=== PATIENT | female | born 1955 | race Caucasian/White ===

== ENCOUNTER → 2020-02-04 09:32 | Outpatient (BNVA) | payer MEDICARE, SELFPAY | PROVIDERS: PCP Internal Medicine Sports Medicine; Visit Provider Student in an Organized Health Care Education/Training Program | DX: M05.9 Rheumatoid arthritis with rheumatoid factor, unspecified (principal); R21 Rash and other nonspecific skin eruption; M81.0 Age-related osteoporosis without current pathological fracture; Z79.899 Other long term (current) drug therapy | CPT/HCPCS: 99213 ==

== ENCOUNTER → 2020-03-16 11:21 | Outpatient (BNVA) | payer MEDICARE, SELFPAY | PROVIDERS: PCP Internal Medicine Sports Medicine; Referring Provider Internal Medicine Sports Medicine; Visit Provider Student in an Organized Health Care Education/Training Program | DX: M05.9 Rheumatoid arthritis with rheumatoid factor, unspecified (principal); R21 Rash and other nonspecific skin eruption; M81.0 Age-related osteoporosis without current pathological fracture; Z79.52 Long term (current) use of systemic steroids; Z79.899 Other long term (current) drug therapy | CPT/HCPCS: 99212 ==

== ENCOUNTER → 2020-05-24 10:52 | Outpatient (BNVA) | payer MEDICARE, SELFPAY | PROVIDERS: PCP Internal Medicine Sports Medicine; Referring Provider Internal Medicine Sports Medicine; Visit Provider Student in an Organized Health Care Education/Training Program | DX: M05.9 Rheumatoid arthritis with rheumatoid factor, unspecified (principal); R21 Rash and other nonspecific skin eruption; M81.0 Age-related osteoporosis without current pathological fracture | CPT/HCPCS: 99212 ==

== ENCOUNTER → 2020-08-16 09:32 | Outpatient (BNVA) | payer MEDICARE, SELFPAY | PROVIDERS: PCP Internal Medicine Sports Medicine; Visit Provider Student in an Organized Health Care Education/Training Program | DX: M05.9 Rheumatoid arthritis with rheumatoid factor, unspecified (principal); M81.0 Age-related osteoporosis without current pathological fracture | CPT/HCPCS: 99212 ==

== ENCOUNTER → 2020-12-20 11:10 | Outpatient (BNVA) | payer MEDICARE, SELFPAY | PROVIDERS: Visit Provider Student in an Organized Health Care Education/Training Program | DX: M05.9 Rheumatoid arthritis with rheumatoid factor, unspecified (principal); M81.0 Age-related osteoporosis without current pathological fracture | CPT/HCPCS: 99212 ==

== ENCOUNTER → 2021-04-24 09:43 | Outpatient (BNVA) | payer MEDICARE, SELFPAY | PROVIDERS: PCP Internal Medicine Sports Medicine; Visit Provider Nurse Practitioner Family | DX: M81.0 Age-related osteoporosis without current pathological fracture (principal); M05.9 Rheumatoid arthritis with rheumatoid factor, unspecified | CPT/HCPCS: 99212 ==

== ENCOUNTER → 2021-08-16 10:42 | Outpatient (BNVA) | payer MEDICARE, SELFPAY | PROVIDERS: PCP Internal Medicine Sports Medicine; Visit Provider Nurse Practitioner Family | DX: M05.9 Rheumatoid arthritis with rheumatoid factor, unspecified (principal); M81.0 Age-related osteoporosis without current pathological fracture; Z79.899 Other long term (current) drug therapy | CPT/HCPCS: 99212 ==

== ENCOUNTER → 2021-11-22 10:01 | Outpatient (BNVA) | payer MEDICARE, SELFPAY | PROVIDERS: PCP Internal Medicine Sports Medicine; Visit Provider Nurse Practitioner Family | DX: M05.9 Rheumatoid arthritis with rheumatoid factor, unspecified (principal); M81.0 Age-related osteoporosis without current pathological fracture; Z79.899 Other long term (current) drug therapy | CPT/HCPCS: 99212 ==

== ENCOUNTER → 2022-03-20 08:30 | Outpatient (BNVA) | payer MEDICARE, SELFPAY | PROVIDERS: PCP Internal Medicine; Visit Provider Nurse Practitioner Family | DX: M05.9 Rheumatoid arthritis with rheumatoid factor, unspecified (principal); M81.0 Age-related osteoporosis without current pathological fracture; M79.672 Pain in left foot | CPT/HCPCS: 99212 ==

== ENCOUNTER → 2022-06-29 11:41 | Outpatient (BNVA) | payer MEDICARE, SELFPAY | PROVIDERS: PCP Internal Medicine; Visit Provider Nurse Practitioner Family | DX: M05.9 Rheumatoid arthritis with rheumatoid factor, unspecified (principal); M81.0 Age-related osteoporosis without current pathological fracture; M79.672 Pain in left foot; Z79.899 Other long term (current) drug therapy | CPT/HCPCS: 99212 ==

== ENCOUNTER → 2022-11-07 08:39 | Outpatient (BNVA) | payer MEDICARE, SELFPAY | PROVIDERS: PCP Internal Medicine; Visit Provider Internal Medicine Rheumatology | DX: M05.9 Rheumatoid arthritis with rheumatoid factor, unspecified (principal); Z79.899 Other long term (current) drug therapy | CPT/HCPCS: 99212 ==

== ENCOUNTER 2023-03-18 12:51 | Outpatient (AMB) | payer MEDICARE, SELFPAY ==
--- NOTE | 2023-03-18 12:59 | A.OFFVIS_ITS ---
Intake Vital Signs 03/18/23 13:00 Height 5 ft 4 in Weight 167 lb 8.821 oz BMI 28.8 BP 122/70 Blood Pressure Location Lt brachial Position Sitting Pulse 92 Pulse Source Pulse Oximeter Temp 97.2 F Temp Source Skin Pulse Oximetry (%) 94 Oxygen Delivery Method Room Air Intake Visit Reasons: RA Intake Note: Patient presents today to follow up on RA. DEXA at [facility] this year? 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 In general she says the joints are stable. 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 She also lauders the linen. She notes at the end of the day she is achy all over. She remains on leflunomide 20 mg daily. There have been no side effects with this. She has questions about her bone density studies. She had been on alendronate for about 5 years, it was stopped in May of this year. She had a bone density test last done in 2020. This was slightly worse than the previous 0ne from 2019. That test however was considerably better than the previous test from 2017. In any case she is no longer on the alendronate. She wonders if there should be other treatment for her osteoporosis. She has not had any fractures. She has a physically active job and also golfs in the springtime and summer so is rather active. 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 Card Details: Negative chest pain, edema and syncope Resp Details: Negative for SOB, cough and wheezing GI Details: Negative indigestion/heartburn, nausea, abdominal pain, bowel changes, diarrhea, constipation and bloody stool. Endo Details: Negative for polyuria and polydypsia Jason/Lymph Details: Negative for excessive bruising or bleeding. Physical Exam Vital Signs: Last Vital Signs Temp 97.2 F 03/18/23 13:00 Pulse 92 03/18/23 13:00 BP 122/70 03/18/23 13:00 Pulse Ox 94 03/18/23 13:00 Oxygen Delivery Method Room Air 03/18/23 13:00 BMI result Body Mass Index 28.8 APPEARANCE: Patient in no acute distress EYES no redness, pupils equal and reactive to light, eyelids normal EXTREMITIES: No edema, no calf tenderness, normal peripheral pulses. SKIN: No inflammatory or neoplastic lesions. Some calluses under the 1st MTP bilaterally in the left 5th MTP. These are not tender. JOINT EXAM:?? Cervical Spine:? Full range of motion without pain; no tenderness. Thoracic Spine:? No scoliosis.? No tenderness on palpation. Lumbar Spine: Alignment normal.? Full range of motion without pain, no tenderness. Hands: Right: Normal pain-free range of motion with some slight thickening w ithout tenderness at the 2nd and 3rd MCPs. There is some slight tenderness with some thickening at the 3rd PIP. There is some flexion deformity slight bony enlargement without tenderness at the 3rd through 5th PIP joints. The D IP joints also has some slight bony thickening without tenderness. There is no thenar atrophy or sensory loss. Left: Slight thickening without tenderness at the PIP and herDIP joints. Other joints have no soft tissue swelling or tenderness. No thenar atrophy or sensory loss. Wrists: Normal pain-free range of motion without tenderness, swelling, increased warmth or erythema. Elbows: Normal pain-free range of motion without tenderness, swelling, increased warmth or erythema. Shoulders:? Full range of motion without pain. No tenderness, weakness, swelling, increased warmth or erythema. Hips:? Full range of motion without pain. Hip bursa:? No tenderness. Knees:? Normal pain-free range of motion with mild patellofemoral crepitus. There is no effusion, tenderness, swelling, increased warmth or erythema.? Ankles:? Normal pain-free range of motion without tenderness, swelling, increased warmth or erythema. Feet:? LEFT: There is firm callus development underneath the 1st and 5th MTPs. These areas are not tender. There is some slight bony enlargement with no tenderness at the 1st MTP. The remainder of the joints have no soft tissue swelling, redness, warmth in the joints. Right: There is callus underneath the 1st MTP but it is less prominent than on the left side. There is slight 1st MTP bony enlargement without tenderness. Elsewhere she has no tenderness, erythema, swelling, increased warmth, ecchymosis or drainage.? The? Callus noted on the medial aspect of the left great toe ? ? ? Tender points:.? No tenderness to digital palpation at the occiput, trapezius, second rib, lateral epicondyle, knees, greater trochanter and gluteal area bilaterally. ? Results Reviewed Results Reviewed: Labs from [facility]: February 20, 2023: AST 14 ALT 19 creatinine 0.8 CRP less than 0.3 hemoglobin 12, hematocrit 36.7, white count 5.4, ESR less than 2 Assessment & Plan Assessment & Plan (1) Osteoarthritis of fingers of both hands: Code(s): M19.041 - Primary osteoarthritis, right hand; M19.042 - Primary osteoarthritis, left hand (2) ocean transportation intermediary use of drug: Code(s): Z79.899 - Other ocean transportation intermediary (current) drug therapy (3) Osteoporosis: Comment: T scores 04/2019 LS -3.2, fem neck -1.6, hip -1.6 -3.6 04/2021 LS -3.6, fem neck - 1.7, fem -1.6 alendronate 05/2017-05/2022. Code(s): M81.0 - Age-related osteoporosis without current pathological fracture Qualifiers: Osteoporosis type: unspecified Presence of current pathological fracture: without current pathological fracture Qualified Code(s): M81.0 - Age- related osteoporosis without current pathological fracture (4) Seropositive rheumatoid arthritis: Comment: onset 2006 Prednisone: reported- dates unknown Methotrexate: March 2016- January 2017-developed nodules Leflunomide: February 2018- present Xeljanz: September 2019 denied by insurance Humira: November 2019-stopped due to diffuse rash after starting MRI hand (11/21): high grade tear of carpi ulnaris, severe tenosynovitis. Erosions and carpal bones. Code(s): M05.9 - Rheumatoid arthritis with rheumatoid factor, unspecified Plan It looks like the synovitis from the rheumatoid arthritis is well controlled with current treatment. She is not having any side effects and the blood work looks normal so she can continue with the leflunomide as above. There are some underlying changes of osteoarthritis notable in hands. These are not particularly symptomatic currently. We reviewed her bone density studies which basically did show osteoporosis back in 2020 but at least T Scores have stabilized from previous baseline levels of osteoporosis. I told her it would be reasonable to repeat her bone density next year to see what she is doing with the bone density after being off the alendronate for about a year. We will schedule back a return visit in about 4 months with lab work before that visit. Orders: Orders Aspartate Amino Transferase Today M05.9 - Rheumatoid arthritis with rheumatoid factor, unspecified, Z79.899 - Other penitentiary (current) drug therapy Complete Blood Count Auto Diff Today M05.9 - Rheumatoid arthritis with rheumatoid factor, unspecified, Z79.899 - Other ocean transportation intermediary (current) drug therapy Creatinine Today M05.9 - Rheumatoid arthritis with rheumatoid factor, unspecified, Z79.899 - Other ocean transportation intermediary (current) drug therapy Erythrocyte Sedimentation Rate Today M05.9 - Rheumatoid arthritis with rheumatoid factor, unspecified C Reactive Protein Today M05.9 - Rheumatoid arthritis with rheumatoid factor, unspecified Alanine Aminotransferase Today M05.9 - Rheumatoid arthritis with rheumatoid factor, unspecified, Z79.899 - Other penitentiary (current) drug therapy Coding Level of Care Code Est Pt Level 3 (62611) Diagnoses Osteoarthritis of fingers of both hands M19.041; M19.042 alf use of drug Z79.899 Osteoporosis without current pathological fracture, unspecified osteoporosis type M81.0 Osteoporosis type: unspecified Presence of current pathological fracture: without current pathological fracture Seropositive rheumatoid arthritis M05.9
[2023-03-18 13:00] VITALS: BP 122/70; PULSE 92; TEMP 36.2; O2SAT 94; BMI 28.8
== END 2023-03-18 13:37 | disposition home or self-care (01) ==
PROVIDERS: PCP Physician Assistant Medical; Visit Provider Internal Medicine Rheumatology
DX: M19.041 Primary osteoarthritis, right hand (principal); M19.042 Primary osteoarthritis, left hand; Z79.899 Other long term (current) drug therapy; M81.0 Age-related osteoporosis without current pathological fracture; M05.79 Rheumatoid arthritis with rheumatoid factor of multiple sites without organ or systems involvement
CPT/HCPCS: 99214

== ENCOUNTER → 2023-03-18 12:51 | Outpatient (BNVA) | payer MEDICARE, SELFPAY | PROVIDERS: PCP Internal Medicine; Visit Provider Internal Medicine Rheumatology | DX: M05.9 Rheumatoid arthritis with rheumatoid factor, unspecified (principal); M19.041 Primary osteoarthritis, right hand; M19.042 Primary osteoarthritis, left hand; Z79.899 Other long term (current) drug therapy | CPT/HCPCS: 99212 ==

== ENCOUNTER 2023-07-23 14:09 | Outpatient (AMB) | payer MEDICARE, SELFPAY ==
--- NOTE | 2023-07-23 14:18 | MHC.OFFVIS ---
Intake Vital Signs 07/23/23 14:19 Height 5 ft 4 in Weight 160 lb 4.417 oz BMI 27.5 BP 120/68 Blood Pressure Location Rt brachial Position Sitting Respiration 16 Pulse 88 Pulse Source Pulse Oximeter Temp 98.3 F Pulse Oximetry (%) 95 Intake Visit Reasons: ra/op with waist cutter Data Administrator Required: No Allergies adalimumab [Humira] Allergy (Severe, Verified 07/23/23 14:23) rash Medication List - Last Reconciled 07/23/23 by Jeannie Maynard RN leflunomide 20 mg (2 x 10 mg) PO DAILY multivitamin 1 tab PO DAILY valsartan 160 mg PO DAILY HPI HPI Comments History of Present Illness Details Ms. Moser 68-year-old female returns for follow-up of her rheumatoid arthritis. She continues on leflunomide 20 mg and denies any side effects. She says she is functioning well and has not had any flares or joint pains that are concerning since her last visit. She has been off alendronate for about a year and is due to have a repeat bone density. 03/18/2023 Dr. Hadley The patient returns for evaluation of her rheumatoid arthritis. In general she says the joints are stable. 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 She also lauders the linen. She notes at the end of the day she is achy all over. She remains on leflunomide 20 mg daily. There have been no side effects with this. She has questions about her bone density studies. She had been on alendronate for about 5 years, it was stopped in May of this year. She had a bone density test last done in 2020. This was slightly worse than the previous 0ne from 2019. That test however was considerably better than the previous test from 2017. In any case she is no longer on the alendronate. She wonders if there should be other treatment for her osteoporosis. She has not had any fractures. She has a physically active job and also golfs in the springtime and summer so is rather active. 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 SKIN: No inflammatory or neoplastic lesions. Some calluses under the 1st MTP bilaterally in the left 5th MTP. These are not tender. JOINT EXAM:?? Cervical Spine:? Full range of motion without pain; no tenderness. Thoracic Spine:? No scoliosis.? No tenderness on palpation. Lumbar Spine: Alignment normal.? Full range of motion without pain, no tenderness. Hands: Right: Normal pain-free range of motion with some slight thickening without tenderness at the 2nd and 3rd MCPs. There is some slight tenderness with some thickening at the 3rd PIP. There is some flexion deformity slight bony enlargement without tenderness at the 3rd through 5th PIP joints. The DIP joints also has some slight bony thickening without tenderness. There is no thenar atrophy or sensory loss. Left: Slight thickening without tenderness at the PIP and her DIP joints. Other joints have no soft tissue swelling or tenderness. No thenar atrophy or sensory loss. Boutonniere deformity bilateral thumb Wrists: Normal pain-free range of motion without tenderness, swelling, increased warmth or erythema. Elbows: Normal pain-free range of motion without tenderness, swelling, increased warmth or erythema. Shoulders:? Full range of motion without pain. No tenderness, weakness, swelling, increased warmth or erythema. Hips:? Full range of motion without pain. Hip bursa:? No tenderness. Knees:? Normal pain-free range of motion with mild patellofemoral crepitus. There is no effusion, tenderness, swelling, increased warmth or erythema.? Ankles:? Normal pain-free range of motion without tenderness, swelling, increased warmth or erythema. Feet:? LEFT: There is firm callus development underneath the 1st and 5th MTPs. These areas are not tender. There is some slight bony enlargement with no tenderness at the 1st MTP. The remainder of the joints have no soft tissue swelling, redness, warmth in the joints. Right: There is callus underneath the 1st MTP but it is less prominent than on the left side. There is slight 1st MTP bony enlargement without tenderness. Elsewhere she has no tenderness, erythema, swelling, increased warmth, ecchymosis or drainage.? The? Callus noted on the medial aspect of the left great toe ? ? ? Tender points:.? No tenderness to digital palpation at the occiput, trapezius, second rib, lateral epicondyle, knees, greater trochanter and gluteal area bilaterally. ? Assessment & Plan Assessment & Plan (1) Osteoarthritis of fingers of both hands: Code(s): M19.041 - Primary osteoarthritis, right hand; M19.042 - Primary osteoarthritis, left hand (2) salvage determiner use of drug: Code(s): Z79.899 - Other longterm (current) drug therapy (3) Osteoporosis: Comment: T scores 04/2019 LS -3.2, fem neck -1.6, hip -1.6 -3.6 04/2021 LS -3.6, fem neck - 1.7, fem -1.6 alendronate 05/2017-05/2022. Code(s): M81.0 - Age-related osteoporosis without current pathological fracture Qualifiers: Osteoporosis type: unspecified Presence of current pathological fracture: without current pathological fracture Qualified Code(s): M81.0 - Age-related osteoporosis without current pathological fracture (4) Seropositive rheumatoid arthritis: Comment: onset 2006 Prednisone: reported- dates unknown Methotrexate: March 2016- January 2017-developed nodules Leflunomide: February 2018- present Xeljanz: September 2019 denied by insurance Humira: November 2019-stopped due to diffuse rash after starting MRI hand (11/21): high grade tear of carpi ulnaris, severe tenosynovitis. Erosions and carpal bones. Code(s): M05.9 - Rheumatoid arthritis with rheumatoid factor, unspecified Plan # Seropositive RA: It looks like the synovitis from the rheumatoid arthritis is well controlled with current treatment. 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 Her hand IP joints are not bothersome to her and are not symptomatic for stiffness pain or tenderness. Her ESR and CRP are within normal limits as of May 2023. I will obtain updated x-rays of her hands. Will continue leflunomide 20 mg daily. #Osteoporosis: We reviewed her bone density studies which basically did show osteoporosis back in 2020 -.. She has been off alendronate for about a year. We will obtain updated bone density and reassess what treatment to consider at time. #Long-term use: She is not having any side effects and the blood work looks normal so she can continue with the leflunomide 20 mg q.d.. We will also obtain labs before next visit. I spent 30 minutes reviewing history, evaluating patient and discussing osteoporosis treatment options, and documenting Follow-up 6 months months with lab work before that visit. Orders: Orders XR hand LT min 3V Today M05.9 - Rheumatoid arthritis with rheumatoid factor, unspecified XR hand RT min 3V Today M05.9 - Rheumatoid arthritis with rheumatoid factor, unspecified Erythrocyte Sedimentation Rate Today M05.9 - Rheumatoid arthritis with rheumatoid factor, unspecified, Z79.899 - Other salvage determiner (current) drug therapy XR DEXA axial skeleton Today M05.9 - Rheumatoid arthritis with rheumatoid factor, unspecified, M81.0 - Age-related osteoporosis without current pathological fracture Complete Blood Count Auto Diff Today M05.9 - Rheumatoid arthritis with rheumatoid factor, unspecified, Z79.899 - Other salvage determiner (current) drug therapy Comprehensive Met. Panel Today M05.9 - Rheumatoid arthritis with rheumatoid factor, unspecified, Z79.899 - Other salvage determiner (current) drug therapy C Reactive Protein Today M05.9 - Rheumatoid arthritis with rheumatoid factor, unspecified, Z79.899 - Other salvage determiner (current) drug therapy Coding Level of Care Code Est Pt Level 4 (38671) Diagnoses Osteoarthritis of fingers of both hands M19.041; M19.042 salvage determiner use of drug Z79.899 Osteoporosis without current pathological fracture, unspecified osteoporosis type M81.0 Osteoporosis type: unspecified Presence of current pathological fracture: without current pathological fracture Seropositive rheumatoid arthritis M05.9
[2023-07-23 14:19] VITALS: BP 120/68; PULSE 88; RESP 16; TEMP 36.8; O2SAT 95; BMI 27.5
== END 2023-07-23 15:19 | disposition home or self-care (01) ==
PROVIDERS: PCP Physician Assistant Medical; Visit Provider Nurse Practitioner Family
DX: M05.79 Rheumatoid arthritis with rheumatoid factor of multiple sites without organ or systems involvement (principal); M19.041 Primary osteoarthritis, right hand; M19.042 Primary osteoarthritis, left hand; Z79.899 Other long term (current) drug therapy; M81.0 Age-related osteoporosis without current pathological fracture
CPT/HCPCS: 99214

== ENCOUNTER → 2023-07-23 14:09 | Outpatient (BNVA) | payer MEDICARE, SELFPAY | PROVIDERS: PCP Physician Assistant Medical; Visit Provider Nurse Practitioner Family | DX: M19.041 Primary osteoarthritis, right hand (principal); M19.042 Primary osteoarthritis, left hand; M18.0 Bilateral primary osteoarthritis of first carpometacarpal joints; M05.9 Rheumatoid arthritis with rheumatoid factor, unspecified; Z79.899 Other long term (current) drug therapy | CPT/HCPCS: 99212 ==

== ENCOUNTER 2024-01-21 10:59 | Outpatient (AMB) | payer MEDICARE, SELFPAY ==
--- NOTE | 2024-01-21 11:15 | MHC.PC.OV ---
Intake Visit Reasons: est care blood pressure/ athirst Intake Note: patient here for new patient visit. 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 Required: No Is last menstrual period known: No Post menopausal: No Patient : No Allergies adalimumab [Humira] Allergy (Severe, Verified 01/21/24 12:34) rash Medication List - Last Reconciled 01/21/24 by Scarlet Jewell CNP leflunomide 20 mg (2 x 10 mg) PO DAILY multivitamin 1 tab PO DAILY valsartan 160 mg PO DAILY Tobacco use date assessed: 01/21/24 Fall risk assessment: No Falls in past year Last assessed Fall Risk: 01/21/24 Dental Screening Dental Screen Date: 01/21/24 Did you have a dental visit in the last 12 months?: Yes Did you have a dental problem in the last 6 months where you did not have access to dental care?: No Was dental information given to patient?: Patient has dentist HPI HPI Comments History of Present Illness Details New patient Prior PCP:?[facility], Dr Martinez Last office visit/CPE: About 1 year Acute issue(s): Hypertension -He is on valsartan 160 mg daily Seropositive rheumatoid arthritis -She is on leflunomide 20 mg daily PMHx: Hypertension, osteoarthritis of fingers of both hands, seropositive rheumatoid arthritis, osteoporosis, anxiety SurgHx: Left wrist surgery, cholecystectomy FHx: Mom: NE, HTN. MGF: NE SocHx: Former smoker. Does not drink alcohol. No recreational drugs Last eye exam was 2 years at [facility]. She has an eye exam scheduled at [facility] later this month Last mammogram 2-3 years ago: normal Last colonoscopy was at [facility] 2-3 years ago: normal. She does not want another colonoscopy or a Cologuard test She never had a pap smear test and does not want a Pap smear test Last bone scan was 3 years ago: osteoporosis She notes that she generally eats well and exercise routinely. She wakes up several times a night, not to use the bathroom. She does not want medication for sleep She is not vaccinated for shingles or pneumonia and declines these vaccines She was followed by [facility] rheumatology. She has an appointment with Dr. lCemens, next month [facility] Medical History (Updated 01/21/24 @ 12:36 by Scarlet Jewell CNP) Anxiety Surgical History History of cholecystectomy H/O left wrist surgery Family History (Updated 01/21/24 @ 11:33 by Lolis Capellan) Mother Heart attack High blood pressure Maternal Grandfather Heart attack Brother Alcohol abuse Social History Household Members: None Housing: Apartment Alcohol intake: former Patient Tobacco Use Status: Former Tobacco user e-Cigarette/Vaping Use: Never Used Current occupational status: employed Current occupation: [employer] Cognitive needs: No Hearing needs: No Vision needs: Yes Questionnaire PHQ-9 Over the last 2 weeks, how often have you been bothered by any of the following problems? 1. Little interest or pleasure in doing things: not at all 2. Feeling down, depressed, or hopeless: not at all 3. Trouble falling or staying asleep, or sleeping too much: more than half the days 4. Feeling tired or having little energy: more than half the days 5. Poor appetite or overeating: not at all 6. Feeling bad about yourself - or that you are a failure or have let yourself or your family down: not at all 7. Trouble concentrating on things, such as reading the newspaper or watching television: not at all 8. Moving or speaking so slowly that other people could have noticed. Or the opposite - being so fidgety or restless that you have been moving around a lot more than usual: not at all 9. Thoughts that you would be better off or of hurting yourself in some way: not at all Total score: 4 Depression Screening Interpretation: Negative Depression Screening Done: Yes 75210 - PHQ-9 Billing: Yes Source: Developed by Drs. Carlos Loyola, Alba Lee, Darian Green and colleagues, with an educational marcelo from [employer]. Thrive Questionnaire Date Thrive assessed: 01/21/24 I am a: Patient What is your living situation today?: I have a steady place to live Within the past 12 months, did the food you bought not last and you didn't have the money to get more?: Never true Within the past 12 months, did you worry whether your food would run out before you got money to buy more?: Never true Do you have trouble paying for medicines?: No Do you have trouble getting transportation to medical appointments?: No Do you have trouble paying your heating and electricity bill?: No Do you have trouble taking care of your child, family member or friend?: No Do you have trouble with day-to-day activities such as bathing, preparing meals, shopping, managing finances, etc.?: No Are you currently unemployed and looking for a job?: No Are you interested in more education?: No Please select the resources that you would like help with: None Currently or been in a relationship where the following occur: No concerns reported THRIVE Score: 0 AUDIT C Alcohol Use Questionnaire (AUDIT-C) 1. How often do you have a drink containing alcohol?: Never Total Score: 0 Score Reviewed/Action Taken: Yes SALLIE-7 AMB Questionnaire SALLIE-7 Date SALLIE - 7 assessed: 01/21/24 Feeling nervous, anxious, or on edge: 0 = Not at all Not being able to stop or control worryin = Not at all Worrying too much about different things: 0 = Not at all Trouble relaxin = Not at all Being so restless that it is hard to sit still: 0 = Not at all Becoming easily annoyed or irritable: 2 = More than half the days Feeling afraid as if something awful might happen: 0 = Not at all Total SALLIE-7 score (0-4 normal; 5-9 mild; 10-14 moderate; 15-21 severe): 2 Source: Developed by Drs. Carlos Loyola, Alba Lee, Darian Green and colleagues, with an educational marcelo from [employer]. SALLIE-7 Assessment Billing SALLIE-7 Assessment Tool: SALLIE-7 Assessment 43398 Review of Systems Const Details: Const Denies chills, Denies fatigue, Denies fever(s), Denies headache(s) and Denies weakness ENT Denies dizziness and Denies headache(s) Card Denies chest pain, Denies lightheadedness, Denies dyspnea and Denies other (Palpitations) Resp Denies cough, Denies dyspnea, Denies wheezing and Denies other ( shortness of breath) GI Denies abdominal pain, Denies melena, Denies hematochezia, Denies change in bowel habits, Denies dyspepsia and Denies nausea Denies hematuria and Denies dysuria Musc Denies abnormal gait, Denies myalgias, Denies arthralgias, Denies numbness and Denies tingling Skin/Breast Denies rash, Denies unusual bruising and Denies wounds Neuro Denies abnormal gait, Denies dizziness, Denies headache(s), Denies memory loss, Denies numbness, Denies Sensory deficit (Neuro), Denies tingling and Denies weakness Psych Denies anxiety, Denies depression, Denies memory loss Endo Denies cold intolerance, Denies fatigue, Denies heat intolerance, Denies polydipsia and Denies polyuria Aller/Immun Denies wheezing Physical exam (Primary Care) Tobacco/Smoking Status: Tobacco use Status Tobacco use date assessed 01/21/24 01/21/24 11:20 Patient Tobacco Use Status Former Tobacco user 01/21/24 11:16 e-Cigarette/Vaping Use Never Used 01/21/24 11:20 PHQ-9: PHQ-9 Score PHQ-9: Total score 4 01/21/24 12:03 Depression Screening Interpretation: Negative Thrive Assessment: Date of Thrive Assessment Date Thrive assessed 01/21/24 01/21/24 11:27 Currently or been in a relationship where the following occur: No concerns reported Const Other: General: no acute distress and well developed Nutritional Appearance: well nourished Orientation/consciousness: patient oriented x3 HENMT Head: Yes normocephalic and Yes atraumatic Eyes General: appearance normal, both eyes and all related structures Pupils: Equal, round and reactive pupils present EOM: EOMs intact bilaterally Resp Effort & Inspection: normal respiratory effort Auscultation: clear to auscultation bilaterally Cardio Rate: regular rate Rhythm: regular rhythm Heart sounds: S1 normal heart sound present, S2 normal heart sound present, no gallops, no murmurs and no rubs GI Palpation (GI): No Abdominal aortic bruit present, Soft to palpation, nontender, No hepatosplenomegaly present and No Rebound tenderness present Auscultation: normal bowel sounds General: Yes no CVA tenderness Back/Spine/Pelvis Back: no CVA tenderness Cervical Spine: cervical ROM normal and No Cervical spine tenderness Thoracic/Lumbar Spine: thoraco-lumbar ROM normal, No pain with thoraco-lumbar ROM, No thoracic spinal tenderness and No lumbar spinal tenderness Extrem General: Yes normal to inspection, No edema and No calf tenderness Skin General: warm and dry. Normal skin color. Normal skin turgor Lesions: no lesions Rashes: no rashes Trauma: no lacerations or abrasions Wounds: no wounds Nails: normal Neuro General: patient oriented x3, gait normal and no focal neuro deficit Cranial nerves: Yes Equal, round and reactive pupils present Cognition (Neuro): normal cognition Gait exam (Neuro): Normal gait present Sensory Exam: No Sensory deficit (Neuro) Psych Appearance: grossly normal Affect: normal affect Attitude: cooperative Thought process: Normal thought process present Assessment and Plan Assessment & Plan (1) Normal physical examination, routine: Code(s): Z00.00 - Encounter for general adult medical examination without abnormal findings Plan: No significant physical restrictions or limitations noted Continue current treatment regimen Healthy diet and routine exercise encouraged Advised to get lab work done and follow-up for telehealth visit in 2-3 weeks for labs review Return with symptoms or concerns Verbalized understanding and agreed with the treatment plan (2) Hypertension: Code(s): I10 - Essential (primary) hypertension Plan: Resting blood pressure is 120/68, within goal of less than 140/90 Continue current treatment regimen Low-sodium diet encouraged Will continue to monitor Verbalized understanding and agreed with the plan (3) Sleep disturbances: Code(s): G47.9 - Sleep disorder, unspecified Plan: She wakes up several times a night, not to use the bathroom Declines medication for sleep Instructed on sleep hygiene Follow-up with worsening or new symptoms Verbalized understanding and agreed with the treatment plan (4) Seropositive rheumatoid arthritis: Comment: onset 2005 Prednisone: reported- dates unknown Methotrexate: March 2016- January 2017-developed nodules Leflunomide: February 2018- present Xeljanz: September 2019 denied by insurance Humira: November 2019-stopped due to diffuse rash after starting MRI hand (11/21): high grade tear of carpi ulnaris, severe tenosynovitis. Erosions and carpal bones. Code(s): M05.9 - Rheumatoid arthritis with rheumatoid factor, unspecified Plan: Was followed by [facility] Rheumatology. She has an appointment to establish with Dr. Clemens next month (5) Osteoporosis: Comment: T scores 04/2019 LS -3.2, fem neck -1.6, hip -1.6 -3.6 04/2021 LS -3.6, fem neck - 1.7, fem -1.6 alendronate 05/2017-05/2022. Code(s): M81.0 - Age-related osteoporosis without current pathological fracture Qualifiers: Osteoporosis type: unspecified Presence of current pathological fracture: without current pathological fracture Qualified Code(s): M81.0 - Age-related osteoporosis without current pathological fracture Plan: Last bone scan was 3 years ago: osteoporosis DEXA scan ordered (6) Breast cancer screening by mammogram: Code(s): Z12.31 - Encounter for screening mammogram for malignant neoplasm of breast Plan: Last mammogram 2-3 years ago: normal Mammogram ordered (7) Laboratory tests ordered as part of a complete physical exam (CPE): Code(s): Z00.00 - Encounter for general adult medical examination without abnormal findings Plan: Fasting labs ordered as part of a complete physical exam. Advised to fast for at least 10 hours before getting labs drawn. May drink water Verbalized understanding and agreed with treatment plan. Orders: Orders Complete Blood Count no Diff Today Z00.00 - Encounter for general adult medical examination without abnormal findings TSH reflex Free T4 Today Z00.00 - Encounter for general adult medical examination without abnormal findings MM screening mammo BI Today Z12. - Encounter for screening mammogram for malignant neoplasm of breast XR DEXA axial skeleton Today M81.0 - Age-related osteoporosis without current pathological fracture Complete Blood Count Auto Diff Today Z00.00 - Encounter for general adult medical examination without abnormal findings Microalbumin, Random (w Creat) Today Z00.00 - Encounter for general adult medical examination without abnormal findings Lipid Panel Today Z00.00 - Encounter for general adult medical examination without abnormal findings UA CC w/rflx Micro + Cult Today Z00.00 - Encounter for general adult medical examination without abnormal findings Coding Level of Care Code Tele New Pt Level 3 (39839) New Pt Prev Care >65yr (85224) Diagnoses Normal physical examination, routine Z00.00 Hypertension I10 Sleep disturbances G47.9 Seropositive rheumatoid arthritis M05.9 Osteoporosis without current pathological fracture, unspecified osteoporosis type M81.0 Osteoporosis type: unspecified Presence of current pathological fracture: without current pathological fracture Breast cancer screening by mammogram Z12. Laboratory tests ordered as part of a complete physical exam (CPE) Z00.00 Additional Codes SALLIE-7 Assessment Billing - SALLIE-7 Assessment Tool: SALLIE-7 Assessment 49721 ([id number])
== END 2024-01-21 12:27 | disposition home or self-care (01) ==
PROVIDERS: PCP Nurse Practitioner Family; Visit Provider Nurse Practitioner Family
DX: Z00.00 Encounter for general adult medical examination without abnormal findings (principal); I10 Essential (primary) hypertension; G47.9 Sleep disorder, unspecified; M05.9 Rheumatoid arthritis with rheumatoid factor, unspecified; M81.0 Age-related osteoporosis without current pathological fracture; Z12.31 Encounter for screening mammogram for malignant neoplasm of breast

== ENCOUNTER → 2024-01-21 10:59 | Outpatient (BNVA) | payer MEDICARE, SELFPAY | PROVIDERS: PCP Physician Assistant Medical; Visit Provider Nurse Practitioner Family | DX: Z00.00 Encounter for general adult medical examination without abnormal findings (principal); I10 Essential (primary) hypertension; G47.9 Sleep disorder, unspecified; M05.9 Rheumatoid arthritis with rheumatoid factor, unspecified; M81.0 Age-related osteoporosis without current pathological fracture | CPT/HCPCS: 96127 ==

== ENCOUNTER 2024-01-23 09:42 | Outpatient (REF) | payer MEDICARE, SELFPAY ==
[2024-01-23 11:16] LABS: MANUAL DIFF FLAG NO
[2024-01-23 11:25] LABS: Appearance Urine Clear; Color Urine Dark Yellow; Glucose Urine UA Negative (Negative); Leukocyte Esterase Urine Negative (Negative); Nitrite Urine Negative (Negative); Specific Gravity - Urine 1.025 (1.005-1.025); Urine Blood Negative (Negative); Urine Ketones Trace mg/dL (Negative); Urine Protein Negative (Neg-Trace)
[2024-01-23 11:52] LABS: Basophils Percent Auto 0.6 % (0-2); Eosinophils Absolute Auto 0.1 X10*3/uL (0.0-0.4); Eosinophils Percent Auto 1.7 % (0-4); Hematocrit 39.6 % (37.0-47.0); Hemoglobin 13.2 g/dl (12.0-16.0); Imm Gran Abs Auto 0.02 X10*3/uL (0.00-0.03); Imm Gran Pct Auto 0.4 % (0.0-0.4); Lymphocytes Absolute Auto 1.3 X10*3/uL (1.2-4.9); Mean Corpuscular HGB Conc 33.3 g/dl (31.0-35.0); Mean Corpuscular Hemoglobin 32.9 pg (27.0-33.0); Mean Corpuscular Volume 98.8 fL (80.0-98.0); Mean Platelet Volume 10.5 fL (9.4-12.3); Monocytes Absolute Auto 0.5 X10*3/uL (0.1-1.2); Monocytes Percent Auto 8.6 % (2-11); Neutrophils Absolute Auto 3.4 x10*3/uL (2.0-8.3); Neutrophils Percent Auto 63.7 % (45-73); Platelet Count 364 X10*3/uL (160-400); Red Blood Count 4.01 X10*6/uL (4.20-5.50); Red Cell Distribution Width 13.7 % (11.0-16.0); White Blood Count 5.4 X10*3/uL (4.8-10.8)
[2024-01-23 12:13] LABS: Cholesterol 228 mg/dL (<200); HDL Cholesterol 80 mg/dL (>40); LDL Cholesterol Calculated 130 mg/dL (<100); Triglycerides 94 mg/dL (<150)
[2024-01-23 12:17] LABS: TSH reflex Free T4 1.19 uIU/mL (0.32-4.0)
[2024-01-23 12:21] LABS: Creatinine Urine 150.64 mg/dL; Microalbum/Creatinine Ratio Ur 13.2 ug/mg cr (<30)
== END 2024-01-23 09:43 | disposition home or self-care (01) ==
LOC: HO.WFDLDS 09:42
PROVIDERS: Visit Provider Nurse Practitioner Family
DX: Z00.00 Encounter for general adult medical examination without abnormal findings (principal)
CPT/HCPCS: 36415; 80061; 81003; 82043; 82570; 84443; 85025

== ENCOUNTER 2024-02-12 14:40 | Outpatient (AMB) | payer MEDICARE, SELFPAY ==
--- NOTE | 2024-02-12 13:42 | MHC.PC.OV ---
Intake Visit Reasons: telehealth blood work fu Intake Note: telehealth for blood work [address] Engineer Required: No Allergies adalimumab [Humira] Allergy (Severe, Verified 02/12/24 14:38) rash Tobacco use date assessed: 01/21/24 Dental Screening Dental Screen Date: 01/21/24 HPI HPI Comments History of Present Illness Details 68-year-old female presents for telehealth visit for review of recent lab results She admits to taking her medications as prescribed without adverse reactions She denies acute symptoms at this time [facility] Medical History (Updated 02/12/24 @ 13:44 by Scarlet Jewell CNP) Anxiety Surgical History History of cholecystectomy H/O left wrist surgery Family History (Updated 01/21/24 @ 11:33 by Lolis Capellan MA) Mother Heart attack High blood pressure Maternal Grandfather Heart attack Brother Alcohol abuse Social History Household Members: None Housing: Apartment Alcohol intake: former Patient Tobacco Use Status: Former Tobacco user e-Cigarette/Vaping Use: Never Used Current occupational status: employed 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 Carlos Loyola, Alba Lee, Darian Green and colleagues, with an educational marcelo from [employer]. Review of Systems Const Details: Const Denies chills, Denies fatigue, Denies fever(s), Denies headache(s) and Denies weakness ENT Denies dizziness and Denies headache(s) Card Denies chest pain, Denies lightheadedness, Denies dyspnea and Denies other (Palpitations) Resp Denies cough, Denies dyspnea, Denies wheezing and Denies other ( shortness of breath) GI Denies abdominal pain, Denies melena, Denies hematochezia, Denies change in bowel habits, Denies dyspepsia and Denies nausea Denies hematuria and Denies dysuria Musc Denies abnormal gait, Denies myalgias, Denies arthralgias, Denies numbness and Denies tingling Skin/Breast Denies rash, Denies unusual bruising and Denies wounds Neuro Denies abnormal gait, Denies dizziness, Denies headache(s), Denies memory loss, Denies numbness, Denies Sensory deficit (Neuro), Denies tingling and Denies weakness Psych Denies anxiety, Denies depression, Denies memory loss Endo Denies cold intolerance, Denies fatigue, Denies heat intolerance, Denies polydipsia and Denies polyuria Aller/Immun Denies wheezing Physical exam (Primary Care) Tobacco/Smoking Status: Tobacco use Status Tobacco use date assessed 01/21/24 02/12/24 13:46 Patient Tobacco Use Status Former Tobacco user 02/12/24 13:46 e-Cigarette/Vaping Use Never Used 02/12/24 13:46 Thrive Assessment: Date of Thrive Assessment Date Thrive assessed 01/21/24 02/12/24 13:46 Const Other: Telehealth visit. No physical exam Telehealth Telehealth Telehealth Platform: Telephone Location of provider rendering services: practice address Location of patient: address on file Patient Identification confirmed using: Name, : Yes Telehealth method: voice only Patient verbally consented to treatment: Yes Patient verbally consented to billing insurance company: Yes Patient informed of any privacy concerns related to visit: Yes Coding Level of Care Code Tele Est Pt Level 3 (49392) Diagnoses Hypercholesterolemia E78.00 Time Spent (min) 10 Assessment & Plan Assessment & Plan (1) Hypercholesterolemia: Code(s): E78.00 - Pure hypercholesterolemia, unspecified Category: Medical Plan: Recent lab results reviewed with the patient; unremarkable findings except for slightly elevated total cholesterol and LDL, 228 and 130 respectively Advised to limit foods high in saturated fat and avoid foods high in trans fat Routine exercise encouraged She notes that she eats cheese every day but will cut down to 4 times weekly CMP was inadvertently not ordered. Will check CMP Advised to fast for 10-12 hours, may drink water only, and get CMP blood work done. Will review results and make changes as needed She does not want to follow-up for her blood pressure sooner on every 4 months Advised to follow-up in four months for hypertension or sooner with symptoms or concerns Verbalized understanding and agreed with the treatment plan Orders: Orders Comprehensive [place]. Panel Fast Today Z00.00 - Encounter for general adult medical examination without abnormal findings
== END 2024-02-12 14:50 | disposition home or self-care (01) ==
LOC: HO.HMCFM 14:40
PROVIDERS: PCP Nurse Practitioner Family; Visit Provider Nurse Practitioner Family
DX: E78.00 Pure hypercholesterolemia, unspecified (principal)

== ENCOUNTER → 2024-02-12 14:40 | Outpatient (BNVA) | payer MEDICARE, SELFPAY | PROVIDERS: PCP Nurse Practitioner Family; Visit Provider Nurse Practitioner Family | DX: Z00.00 Encounter for general adult medical examination without abnormal findings (principal); M81.0 Age-related osteoporosis without current pathological fracture ==

== ENCOUNTER 2024-03-03 13:56 | Outpatient (AMB) | payer MEDICARE, SELFPAY ==
--- NOTE | 2024-03-03 14:12 | A.OFFVIS_ITS ---
Vital Signs 03/03/24 14:16 Height 5 ft 4 in Weight 156 lb 4.924 oz BMI 26.8 BP 142/80 H Blood Pressure Location Rt brachial Position Sitting Pulse 83 Pulse Source Pulse Oximeter Pulse Oximetry (%) 98 Oxygen Delivery Method Room Air Intake Visit Reasons: ra/CM Intake Note: Patient presents for RA. Allergies adalimumab [Humira] Allergy (Severe, Verified 03/03/24 14:15) rash Medication List - Last Reconciled 03/03/24 by Scarlet Clemens MD leflunomide 20 mg (2 x 10 mg) PO DAILY multivitamin 1 tab PO DAILY valsartan 160 mg PO DAILY HPI Comments Details: This is a 68-year-old female with rheumatoid arthritis who presents for follow- up. She remains on leflunomide 20 mg daily. She states that she feels great overall. No joint swelling or stiffness. She states that she is quite active. She does multiple activities including golfing. She states that she gets intermittent pain on the outside of her left hip. She denies any unintentional weight loss. Denies any cough or shortness of breath. 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 SKIN: No inflammatory or neoplastic lesions. Some calluses under the 1st MTP bilaterally in the left 5th MTP. These are not tender. JOINT EXAM:?? Cervical Spine:? Full range of motion without pain; no tenderness. Thoracic Spine:? No scoliosis.? No tenderness on palpation. Lumbar Spine: Alignment normal.? Full range of motion without pain, no tenderness. Hands: Right: Normal pain-free range of motion with some slight thickening without tenderness at the 2nd and 3rd MCPs. There is some slight tenderness with some thickening at the 3rd PIP. There is some flexion deformity slight bony enlargement without tenderness at the 3rd through 5th PIP joints. The D IP joints also has some slight bony thickening without tenderness. There is no thenar atrophy or sensory loss. Left: Slight thickening without tenderness at the PIP and herDIP joints. Other joints have no soft tissue swelling or tenderness. No thenar atrophy or sensory loss. Wrists: Normal pain-free range of motion without tenderness, swelling, increased warmth or erythema. Elbows: Normal pain-free range of motion without tenderness, swelling, increased warmth or erythema. Shoulders:? Full range of motion without pain. No tenderness, weakness, swelling, increased warmth or erythema. Hips:? Full range of motion without pain. Hip bursa:? No tenderness. Knees:? Normal pain-free range of motion with mild patellofemoral crepitus. There is no effusion, tenderness, swelling, increased warmth or erythema.? Ankles:? Normal pain-free range of motion without tenderness, swelling, increased warmth or erythema. Feet:? LEFT: There is firm callus development underneath the 1st and 5th MTPs. These areas are not tender. There is some slight bony enlargement with no tenderness at the 1st MTP. The remainder of the joints have no soft tissue swelling, redness, warmth in the joints. Right: There is callus underneath the 1st MTP but it is less prominent than on the left side. There is slight 1st MTP bony enlargement without tenderness. Elsewhere she has no tenderness, erythema, swelling, increased warmth, ecchymosis or drainage.? The? Callus noted on the medial aspect of the left great toe ? ? ? Tender points:.? No tenderness to digital palpation at the occiput, trapezius, second rib, lateral epicondyle, knees, greater trochanter and gluteal area bilaterally. ? Const General: cooperative, healthy appearing and comfortable Nutritional Appearance: overweight Orientation/consciousness: patient oriented x3 Limitations: no limitations HEENT Head: Yes normocephalic and Yes atraumatic Resp Effort & Inspection: normal respiratory effort and able to speak in complete sentences Auscultation: clear to auscultation bilaterally Cardio Rate: regular rate Rhythm: regular rhythm Skin General skin exam: no rashes or lesions noted Neuro General: patient oriented x3 Extrem Other: Osteoarthritic changes of both hands with squaring of the 1st CMC joints bilaterally as well as the deformity of the thumbs Synovial thickening of the right 3rd MCP without tenderness 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 Erosions and carpal bones. Code(s): M05.9 - Rheumatoid arthritis with rheumatoid factor, unspecified Category: Medical Plan: This is a 68-year-old female with seropositive RA who presents for follow-up. She remains on leflunomide 20 mg daily. 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 We will discuss the results next visit (4) Greater trochanteric bursitis of left hip: Code(s): M70.62 - Trochanteric bursitis, left hip Category: Medical Plan: I provided patient with a printout of home exercise Plan I spent 30 minutes reviewing patient's chart, evaluating patient, ordering diagnostic workup, counseling patient and documenting in the chart Orders: Orders Comprehensive Met. Panel 6 Months M05.9 - Rheumatoid arthritis with rheumatoid factor, unspecified, Z79.899 - Other [facility] (current) drug therapy C Reactive Protein 6 Months M05.9 - Rheumatoid arthritis with rheumatoid factor, unspecified, Z79.899 - Other [facility] (current) drug therapy C Reactive Protein 3 Months M05.9 - Rheumatoid arthritis with rheumatoid factor, unspecified, Z79.899 - Other rodent exterminator (current) drug therapy Erythrocyte Sedimentation Rate 3 Months M05.9 - Rheumatoid arthritis with rheumatoid factor, unspecified, Z79.899 - Other rodent exterminator (current) drug therapy Complete Blood Count Auto Diff 6 Months M05.9 - Rheumatoid arthritis with rheumatoid factor, unspecified, Z79.899 - Other [facility] (current) drug therapy Erythrocyte Sedimentation Rate 6 Months M05.9 - Rheumatoid arthritis with rheumatoid factor, unspecified, Z79.899 - Other rodent exterminator (current) drug therapy Complete Blood Count Auto Diff 3 Months M05.9 - Rheumatoid arthritis with rheumatoid factor, unspecified, Z79.899 - Other [facility] (current) drug therapy Comprehensive Met. Panel 3 Months M05.9 - Rheumatoid arthritis with rheumatoid factor, unspecified, Z79.899 - Other [facility] (current) drug therapy Coding Level of Care Code Est Pt Level 4 (97193) Complex EM visit Add On G2211 Diagnoses Seropositive rheumatoid arthritis M05.9 [facility] use of drug Z79.899 Osteoporosis without current pathological fracture, unspecified osteoporosis type M81.0 Osteoporosis type: unspecified Presence of current pathological fracture: without current pathological fracture Greater trochanteric bursitis of left hip M70.62
[2024-03-03 14:16] VITALS: BP 142/80; PULSE 83; O2SAT 98; BMI 26.8
== END 2024-03-03 14:44 | disposition home or self-care (01) ==
LOC: HO.RHE 13:57
PROVIDERS: PCP Nurse Practitioner Family; Visit Provider Student in an Organized Health Care Education/Training Program
DX: M05.79 Rheumatoid arthritis with rheumatoid factor of multiple sites without organ or systems involvement (principal); Z79.899 Other long term (current) drug therapy; M81.0 Age-related osteoporosis without current pathological fracture; M70.62 Trochanteric bursitis, left hip
CPT/HCPCS: 99214; G2211

== ENCOUNTER → 2024-03-03 13:56 | Outpatient (BNVA) | payer MEDICARE, SELFPAY | PROVIDERS: PCP Nurse Practitioner Family; Visit Provider Student in an Organized Health Care Education/Training Program | DX: M05.9 Rheumatoid arthritis with rheumatoid factor, unspecified (principal); M81.0 Age-related osteoporosis without current pathological fracture; M70.62 Trochanteric bursitis, left hip; Z79.899 Other long term (current) drug therapy | CPT/HCPCS: 99212 ==

== ENCOUNTER 2024-03-26 10:36 | Outpatient (REF) | payer MEDICARE, SELFPAY ==
--- NOTE | ~2024-03-26 | MM_ITS ---
EXAMINATION: BONE DENSITOMETRY CLINICAL INDICATION: Age-related osteoporosis without current pathological fracture. COMPARISON: This is the patient's baseline examination. TECHNIQUE: Using a [employer] DXA System (software version: 13.1) manufactured by [employer], dual-energy x-ray absorptiometry was performed of the lumbar spine and left hip. The images are of good technical quality. Summary results are attached. FINDINGS: LEFT FEMUR, NECK: BMD 0.815 g/cm2, Z-score -0.1, T-score -1.6, osteopenia. LEFT FEMUR, TOTAL: BMD 0.776 g/cm2, Z-score -0.5, T-score -1.8, osteopenia. AP SPINE L1-L4: BMD 0.749 g/cm2, Z-score -2.1, T-score -3.6, osteoporosis. IDENTIFIED RISK FACTORS: Menopause, osteoporosis, rheumatoid arthritis. HISTORY OF FRACTURE: None listed. MEDICATIONS: Multivitamin, vitamin D, bisphosphonate. MM/XR DEXA axial skeleton IMPRESSION: 1. DIAGNOSIS: Osteoporosis based on the lowest T-score value of -3.6 in the lumbar spine applying World Health Organization criteria. 2. 10-YEAR FRACTURE RISK PREDICTION, FRAX: According to the guidelines, FRAX calculation should only be performed on patients in the osteopenia bone density category. Therefore, FRAX was not performed on this patient. 3. Treatment Recommendations: NOF guidelines recommend consideration for treatment in postmenopausal women and men age 50 and older presenting with the following: -A hip or vertebral (clinical or morphometric) fracture. -T-score less than or equal to -2.5 at the femoral neck or spine after appropriate evaluation to exclude secondary causes. -Low bone mass at the hip or spine and a 10-year fracture probability by FRAX of greater than or equal to 3% for hip fracture or greater than or equal to 20% for major osteoporotic fracture based on the [place] adapted WHO algorithm. 4. Other Recommendations: All treatment decisions require clinical judgment and consideration of individual patient factors, including patient preferences, comorbidities, previous drug use, risk factors not captured in the FRAX model (e.g. frailty, falls, vitamin D deficiency, increased bone turnover, interval significant decline in bone density) and possible under or overestimation of fracture risk by FRAX. Additional medical evaluation for secondary cause of low bone mineral density may be appropriate. FUTURE SCAN RECOMMENDATION: People with diagnosed cases of osteoporosis or at high risk for fracture should have regular bone mineral density tests. For patients eligible for Medicare, routine testing is allowed once every 2 years. The testing frequency can be increased to one year for patients who have rapidly progressing disease, those who are receiving or discontinuing medical therapy to restore bone mass, or have additional risk factors. Electronically signed by: Gloria Anderson MD 03/27/2024 08:01 AM [facility]
--- NOTE | ~2024-03-26 | MM_ITS ---
EXAMINATION: MM SCREENING DIGITAL BREAST TOMOSYNTHESIS, BILATERAL CLINICAL INFORMATION: Screening. Asymptomatic. COMPARISON: Mammography: Comparison is made with available priors TECHNIQUE: Digital breast mammography with tomosynthesis is performed in both the craniocaudal and mediolateral oblique views along with computer-aided detection (CAD). FINDINGS: The breasts are heterogeneously dense, which may obscure small masses (ACR BI-RADS breast composition Category c). There are no significant masses, abnormal calcifications, or other abnormalities. MM/MM tomosynthesis screening BI IMPRESSION: No mammographic evidence of malignancy. ASSESSMENT: BI-RADS BI-RADS 1 - Negative RECOMMENDATION: Routine annual mammography screening. 1 year F/U This examination should not preclude the clinical evaluation of a suspicious palpable abnormality. This patient's information was entered into a reminder system with a target due date for their next mammogram. Electronically signed by: Amanda Tolentino DO 04/06/2024 09:30 AM [facility]
== END 2024-03-26 10:37 | disposition home or self-care (01) ==
LOC: HO.MAMMO 10:36
PROVIDERS: PCP Nurse Practitioner Family; Visit Provider Nurse Practitioner Family
DX: Z12.31 Encounter for screening mammogram for malignant neoplasm of breast (principal); M81.0 Age-related osteoporosis without current pathological fracture
CPT/HCPCS: 77063; 77067; 77080

== ENCOUNTER → 2024-03-26 10:45 | Outpatient (BNV) | payer MEDICARE, SELFPAY | PROVIDERS: PCP Nurse Practitioner Family; Visit Provider Internal Medicine | DX: Z12.31 Encounter for screening mammogram for malignant neoplasm of breast (principal) | CPT/HCPCS: 77063; 77067 ==

== ENCOUNTER 2024-04-17 09:00 | Outpatient (REF) | payer MEDICARE, SELFPAY ==
--- NOTE | ~2024-04-17 | XR_ITS ---
EXAMINATION: Bilateral hip series CLINICAL INFORMATION: Pain in the hips COMPARISON: None. TECHNIQUE: 2 views of each hip FINDINGS: Right hip: Hip joint and surrounding bone and soft tissues normal. Left hip: Hip joint is surrounding bone and soft tissues are normal. XR/XR hip LT min 2V IMPRESSION: RIGHT HIP: Normal. LEFT HIP: Normal. Electronically signed by: Chip Guerra MD 04/17/2024 02:14 PM [facility]
--- NOTE | ~2024-04-17 | XR_ITS ---
EXAMINATION: Bilateral hip series CLINICAL INFORMATION: Pain in the hips COMPARISON: None. TECHNIQUE: 2 views of each hip FINDINGS: Right hip: Hip joint and surrounding bone and soft tissues normal. Left hip: Hip joint is surrounding bone and soft tissues are normal. XR/XR hip RT min 2V IMPRESSION: RIGHT HIP: Normal. LEFT HIP: Normal. Electronically signed by: Chip Guerra MD 04/17/2024 02:14 PM [facility]
--- NOTE | ~2024-04-17 | XR_ITS ---
EXAMINATION: Lumbosacral spine series CLINICAL INFORMATION: Pain in the right hip COMPARISON: None. TECHNIQUE: 5 views of lumbosacral spine including obliques FINDINGS: At L5-S1 there is grade 1 anterolisthesis. Probable bilateral pars defects. Disc space normal. Remaining vertebral bodies normally aligned with normal vertebral body height. Mild degenerative disc changes present at the L1-L2 3 and L3-L4 levels manifested by endplate osteophytes most prominent at the L1-L2 level. Facets otherwise unremarkable. Additional findings: Surgical clips right upper quadrant. Partially visualized pelvis unremarkable. XR/XR lumbar spine 4V min IMPRESSION: 1. Grade 1 anterolisthesis of L5 on S1 probably related to bilateral pars defects. This could be confirmed with CT if felt clinically necessary. 2. Mild multilevel degenerative disc changes. Electronically signed by: Chip Guerra MD 04/17/2024 02:17 PM [facility]
== END 2024-04-17 09:01 | disposition home or self-care (01) ==
LOC: HO.XRAY 09:00
PROVIDERS: PCP Nurse Practitioner Family; Visit Provider Student in an Organized Health Care Education/Training Program
DX: M25.552 Pain in left hip (principal); M25.551 Pain in right hip
CPT/HCPCS: 72110; 73502

== ENCOUNTER → 2024-04-23 10:13 | Outpatient (BNVA) | payer MEDICARE, SELFPAY | PROVIDERS: PCP Nurse Practitioner Family ==

== ENCOUNTER 2024-05-01 11:40 | Outpatient (REF) | payer MEDICARE, SELFPAY ==
[2024-05-01 13:06] LABS: Parathyroid Hormone Intact 144.3 pg/mL (8.7-77.1)
[2024-05-01 13:13] LABS: Alanine Aminotransferase 18 U/L (0-31); Albumin Level 4.1 g/dL (3.5-5.0); Alkaline Phosphatase 49 U/L (39-117); Anion Gap 9 (12-20); Aspartate Amino Transferase 24 U/L (5-31); Bilirubin Total 0.8 mg/dL (0.0-1.0); Blood Urea Nitrogen 11 mg/dL (9-16); Calcium 8.7 mg/dL (8.4-10.2); Carbon Dioxide 28 mmol/L (22-29); Chloride 108 mmol/L (96-108); Estimated Glomerular Filt Rate > 60; Glucose Random 100 mg/dL (60-115); Potassium 4.2 mmol/L (3.3-5.1); Sodium 141 mmol/L (135-145); Total Protein 6.7 g/dL (6.5-8.0)
[2024-05-01 13:29] LABS: TSH reflex Free T4 1.36 uIU/mL (0.32-4.0); Vitamin D 25-OH Total 55.2 ng/mL (>30)
[2024-05-04 10:28] LABS: Prot Elec - Albumin 4.1 g/dL (3.8-4.8); Prot Elec - Alpha1 0.3 g/dL (0.2-0.3); Prot Elec - Alpha2 0.6 g/dL (0.5-0.9); Prot Elec - Beta 1 0.4 g/dL (0.4-0.6); Prot Elec - Beta 2 0.3 g/dL (0.2-0.5); Prot Elec - Gamma 0.6 g/dL (0.8-1.7); Prot Elec - Total Protein 6.3 g/dL (6.1-8.1)
== END 2024-05-01 11:41 | disposition home or self-care (01) ==
LOC: HO.LAB 11:40
PROVIDERS: PCP Nurse Practitioner Family; Visit Provider Student in an Organized Health Care Education/Training Program
DX: M81.0 Age-related osteoporosis without current pathological fracture (principal)
CPT/HCPCS: 36415; 80053; 82306; 83970; 84165; 84443

== ENCOUNTER 2024-05-04 08:57 | Outpatient (REF) | payer MEDICARE, SELFPAY ==
[2024-05-07 16:39] LABS: Collagen Type I C-Telopeptide 737 pg/mL (see note)
== END 2024-05-04 08:58 | disposition home or self-care (01) ==
LOC: HO.WFDLDS 08:57
PROVIDERS: Visit Provider Student in an Organized Health Care Education/Training Program
DX: M81.0 Age-related osteoporosis without current pathological fracture (principal)
CPT/HCPCS: 36415; 82523

== ENCOUNTER 2024-05-05 14:01 | Outpatient (AMB) | payer MEDICARE, SELFPAY ==
[2024-05-05 14:10] VITALS: BP 154/86; PULSE 92; BMI 26.3
--- NOTE | 2024-05-05 14:10 | MHC.OFFVIS ---
Vital Signs 05/05/24 14:10 Height 5 ft 4 in Weight 153 lb 7.068 oz BMI 26.3 BP 154/86 H Blood Pressure Location Rt brachial Position Sitting Pulse 92 Pulse Source Pulse Oximeter Intake Visit Reasons: osteoporosis Intake Note: Patient last seen by Doctor Scarlet Clemens on 03/03/24. Presents today for Osteoporosis follow up and test results. 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 She remains on leflunomide 20 mg daily. She states that she feels great overall. No joint swelling or stiffness. She states that she is quite active. She does multiple activities including golfing. She denies any unintentional weight loss. Denies any cough or shortness of breath. 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 Cognitive needs: No Hearing needs: No Vision needs: Yes Female Reproductive History Menstrual Total pregnancies: 0 Review of Systems Musc Reports back pain, Denies arthralgias and Denies joint swelling Physical Exam Vital Signs: Last Vital Signs Pulse 92 05/05/24 14:10 BP 154/86 H 05/05/24 14:10 BMI result Body Mass Index 26.3 Const General: cooperative, healthy appearing and comfortable Nutritional Appearance: overweight Orientation/consciousness: patient oriented x3 Limitations: no limitations HEENT Head: Yes normocephalic and Yes atraumatic Resp Effort & Inspection: normal respiratory effort and able to speak in complete sentences Neuro General: patient oriented x3 Extrem Other: Osteoarthritic changes of both hands with squaring of the 1st CMC joints bilaterally as well as the deformity of the thumbs Synovial thickening of the right 3rd MCP without tenderness 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 Erosions and carpal bones. Code(s): M05.9 - Rheumatoid arthritis with rheumatoid factor, unspecified Category: Medical Plan: This is a 69-year-old female with seropositive RA who presents for follow-up. She remains on leflunomide 20 mg daily. 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 Per patient she has been off off Fosamax for about 2 years Repeat DEXA scan shows worsening T-score. T-score is -3.6 at the L-spine. She denies history of fractures. She has severe osteoporosis. She failed Fosamax We had a long conversation today about osteoporosis and its management. Patient is quite anxious about her condition. Her PTH is elevated. We will repeat her PTH at a different lab. Advised patient to get it done as soon as she can Discussed with patient that it would be best to start with an anabolic agent such as Evenity or Forteo but patient declined. We discussed risks and benefits of Prolia. She is agreeable to start Prolia. We will start prior authorization for Prolia. (not to start before PTH test is back) Vitamin-D levels at target, continue with multivitamin. It was unclear how much calcium and vitamin-D are in that multivitamin. Advised patient to bring it with her next visit Discussed weight-bearing exercises. Avoid falls. Avoid heavy lifting Follow-up in 4 months Plan I spent 30 minutes reviewing patient's chart, evaluating patient, ordering diagnostic workup, counseling patient and documenting in the chart Orders: Orders Parathyroid Hormone Intact Today E21.5 - Disorder of parathyroid gland, unspecified Coding Level of Care Code Est Pt Level 4 (70451) Complex EM visit Add On G2211 Diagnoses Seropositive rheumatoid arthritis M05.9 intermission coordinator use of drug Z79.899 Osteoporosis without current pathological fracture, unspecified osteoporosis type M81.0 Osteoporosis type: unspecified Presence of current pathological fracture: without current pathological fracture
== END 2024-05-05 15:05 | disposition home or self-care (01) ==
PROVIDERS: PCP Nurse Practitioner Family; Visit Provider Student in an Organized Health Care Education/Training Program
DX: M05.79 Rheumatoid arthritis with rheumatoid factor of multiple sites without organ or systems involvement (principal); Z79.899 Other long term (current) drug therapy; M81.0 Age-related osteoporosis without current pathological fracture
CPT/HCPCS: 99214; G2211

== ENCOUNTER → 2024-05-05 14:01 | Outpatient (BNVA) | payer MEDICARE, SELFPAY | PROVIDERS: PCP Nurse Practitioner Family; Visit Provider Student in an Organized Health Care Education/Training Program | DX: M05.9 Rheumatoid arthritis with rheumatoid factor, unspecified (principal); M81.0 Age-related osteoporosis without current pathological fracture; Z79.899 Other long term (current) drug therapy | CPT/HCPCS: 99212 ==

== ENCOUNTER → 2024-05-14 09:16 | Outpatient (BNVA) | payer MEDICARE, SELFPAY | PROVIDERS: PCP Nurse Practitioner Family ==

== ENCOUNTER 2024-06-15 09:40 | Outpatient (AMB) | payer MEDICARE, SELFPAY ==
--- NOTE | 2024-06-15 09:42 | MHC.PC.OV ---
Vital Signs 06/15/24 09:46 06/15/24 10:01 Height 5 ft 4 in Weight 154 lb BMI 26.4 BP 144/68 H 140/72 H Blood Pressure Location Rt brachial Rt brachial Position Sitting Sitting Respiration 16 Pulse 85 Pulse Source Pulse Oximeter Temp 98.0 F Temp Source Oral Pulse Oximetry (%) 98 Oxygen Delivery Method Room Air Intake Visit Reasons: htn Intake Note: patient here for HTN follow up Pharmacy Operations Manager Required: No Is last menstrual period known: No Post menopausal: No Patient : No Allergies adalimumab [Humira] Allergy (Severe, Verified 06/15/24 09:56) rash Medication List - Last Reconciled 06/15/24 by Scarlet Jewell CNP leflunomide 20 mg (2 x 10 mg) PO DAILY multivitamin 1 tab PO DAILY valsartan 160 mg PO DAILY Tobacco use date assessed: 06/15/24 Fall risk assessment: No Falls in past year Last assessed Fall Risk: 06/15/24 Dental Screening Dental Screen Date: 06/15/24 Did you have a dental visit in the last 12 months?: Yes Did you have a dental problem in the last 6 months where you did not have access to dental care?: No Was dental information given to patient?: Patient has dentist HPI HPI Comments History of Present Illness Details 69-year-old female presents for hypertension follow-up. She admits to taking her medications as prescribed without adverse reactions. She notes that she has been making healthy dietary choices, including low-sodium diet. She exercises routinely. She offers no complaints and denies acute symptoms at this time. [facility] Medical History Anxiety Surgical History History of cholecystectomy H/O left wrist surgery Family History Mother Heart attack High blood pressure Maternal Grandfather Heart attack Brother Alcohol abuse Social History Household Members: None Housing: Apartment Alcohol intake: former Patient Tobacco Use Status: Former Tobacco user e-Cigarette/Vaping Use: Never Used Patient : No Current occupational status: employed Current occupation: [employer] [place] [employer] Cognitive needs: No Hearing needs: No Vision needs: Yes Questionnaire Thrive Questionnaire Date Thrive assessed: 01/21/24 SALLIE-7 AMB Questionnaire SALLIE-7 Date SALLEI - 7 assessed: 01/21/24 Source: Developed by Drs. Carlos Loyola, Alba Lee, Darian Green and colleagues, with an educational marcelo from [employer]. Review of Systems Const Details: Const Denies chills, Denies fatigue, Denies fever(s), Denies headache(s) and Denies weakness ENT Denies dizziness and Denies headache(s) Card Denies chest pain, Denies lightheadedness, Denies dyspnea and Denies other (Palpitations) Resp Denies cough, Denies dyspnea, Denies wheezing and Denies other ( shortness of breath) GI Denies abdominal pain, Denies melena, Denies hematochezia, Denies change in bowel habits, Denies dyspepsia and Denies nausea Denies hematuria and Denies dysuria Musc Denies abnormal gait, Denies myalgias, Denies arthralgias, Denies numbness and Denies tingling Skin/Breast Denies rash, Denies unusual bruising and Denies wounds Neuro Denies abnormal gait, Denies dizziness, Denies headache(s), Denies memory loss, Denies numbness, Denies Sensory deficit (Neuro), Denies tingling and Denies weakness Psych Denies anxiety, Denies depression, Denies memory loss Endo Denies cold intolerance, Denies fatigue, Denies heat intolerance, Denies polydipsia and Denies polyuria Aller/Immun Denies wheezing Physical exam (Primary Care) Vital Signs: Last Vital Signs Temp 98.0 F 06/15/24 09:46 Pulse 85 06/15/24 09:46 Resp 16 06/15/24 09:46 BP 144/68 H 06/15/24 09:46 Pulse Ox 98 06/15/24 09:46 Oxygen Delivery Method Room Air 06/15/24 09:46 BMI result Body Mass Index 26.4 Tobacco/Smoking Status: Tobacco use Status Tobacco use date assessed 06/15/24 06/15/24 09:51 Patient Tobacco Use Status Former Tobacco user 06/15/24 09:44 e-Cigarette/Vaping Use Never Used 06/15/24 09:44 Thrive Assessment: Date of Thrive Assessment Date Thrive assessed 01/21/24 06/15/24 09:44 Const Other: General: no acute distress and well developed Nutritional Appearance: well nourished Orientation/consciousness: patient oriented x3 [facility] Head: Yes normocephalic and Yes atraumatic Eyes General: appearance normal, both eyes and all related structures Pupils: Equal, round and reactive pupils present EOM: EOMs intact bilaterally Resp Effort & Inspection: normal respiratory effort Auscultation: clear to auscultation bilaterally Cardio Rate: regular rate Rhythm: regular rhythm Heart sounds: S1 normal heart sound present, S2 normal heart sound present, no gallops, no murmurs and no rubs GI Palpation (GI): No Abdominal aortic bruit present, Soft to palpation, nontender, No hepatosplenomegaly present and No Rebound tenderness present Auscultation: normal bowel sounds General: Yes no CVA tenderness Back/Spine/Pelvis Back: no CVA tenderness Cervical Spine: cervical ROM normal and No Cervical spine tenderness Thoracic/Lumbar Spine: thoraco-lumbar ROM normal, No pain with thoraco-lumbar ROM, No thoracic spinal tenderness and No lumbar spinal tenderness Extrem General: Yes normal to inspection, No edema and No calf tenderness Skin General: warm and dry. Normal skin color. Normal skin turgor Neuro General: patient oriented x3, gait normal and no focal neuro deficit Cranial nerves: Yes Equal, round and reactive pupils present Cognition (Neuro): normal cognition Gait exam (Neuro): Normal gait present Sensory Exam: No Sensory deficit (Neuro) Psych Appearance: grossly normal Affect: normal affect Attitude: cooperative Thought process: Normal thought process present Coding Level of Care Code Est Pt Level 3 (19292) Diagnoses Hypertension I10 Hypercholesterolemia E78.00 Assessment & Plan Assessment & Plan (1) Hypertension: Code(s): I10 - Essential (primary) hypertension Category: Medical Plan: Resting blood pressure is 140/72, slightly above goal of less than 140/80. Continue to take valsartan 160 mg daily. Low-sodium diet and routine exercise encouraged. Follow-up in 2 months or sooner with symptoms or concerns. Verbalized understanding and agreed treatment plan. (2) Hypercholesterolemia: Code(s): E78.00 - Pure hypercholesterolemia, unspecified Category: Medical Plan: Advised to limit foods high in saturated fats and avoid foods high in trans fat. Routine exercise encouraged. Will recheck lipid panel level and make changes as needed. Verbalized understanding and agreed with treatment plan. Orders: Orders Lipid Panel Today E78.00 - Pure hypercholesterolemia, unspecified
[2024-06-15 09:46] VITALS: BP 144/68; PULSE 85; RESP 16; TEMP 36.7; O2SAT 98; BMI 26.4
[2024-06-15 10:01] VITALS: BP 140/72
== END 2024-06-15 10:09 | disposition home or self-care (01) ==
PROVIDERS: PCP Nurse Practitioner Family; Visit Provider Nurse Practitioner Family
DX: I10 Essential (primary) hypertension (principal); E78.00 Pure hypercholesterolemia, unspecified

== ENCOUNTER 2024-06-15 10:17 | Outpatient (REF) | payer MEDICARE, SELFPAY ==
--- OUTSIDE RECORDS SUMMARY | 2024-06-15 11:10 | XMS_ITS | Encounter Summary ---
Author Organization [facility] Address [address] [place] [address] Care Team Providers Care Maintenance And Custodian Supervisor Name Role Phone iNco Martinez MD Primary Care Provider [phone] Community, Pcp Primary Care Provider Unavailabl e Encounter Details Date Type Department Care Team Description 06/29/2022 Outlet Manager Report Medical Records [address] [place] [id number] Tonya Means NP Social History Tobacco Use Types Packs/Day Years Used Date Smoking Tobacco: Former Cigarettes Q uit: 05/06/1991 Smokeless Tobacco: Never Alcohol Use Standard Drinks/Week Comments No 0 (1 standard drink = 0.6 oz pur e alcohol) Alcohol Habits Answer Date Recorded How often do you have a drink containing alcohol ? Never 07/13/2019 How many drinks containing a lcohol do you have on a typical day when you are drinking? Not asked How often do you have six or more drinks on one occasion? Not asked Sex Assigned at Date Recorded Not on file documented as of this encounter Plan of Treatment Not on file documented as of this encounter Visit Diagnoses Not on filedocumented in this encounter Care Teams Maintenance And Custodian Supervisor Relationship Specialty Start Date End Date Nico Martinez MD PCP - General Internal Medicine 03/26/22 01/30/24 [facility], Pcp PCP - General Internal Medicine 01/31/24 documented as of this encounter
--- OUTSIDE RECORDS SUMMARY | 2024-06-15 11:10 | XMS_ITS | Encounter Summary ---
Author Organization [facility] Address [address] [place] [address] Care Team Providers Care Sales Professional Bilingual Name Role Phone Nico Martinez MD Primary Care Provider [phone] [facility], Pcp Primary Care Provider Unavailabl e Reason for Visit * Reason Onset Date Comments refill request 07/18/2022 Encounter Details Date Type Department Care Team Description 07/18/2022 Refill Internal Medicine - [address], [address] [place] [address] Nico Martinez MD [address] [place] [address] refill request Social History Tobacco Use Types Packs/Day Years [...] on file documented as of this encounter Miscellaneous Notes * Telephone Encounter - Mary Ann Nguyen [place] - 07/18/2022 11:45 AM EDT Lab Results Component Value Date NA 139 07/13/2019 K 4.2 07/13/2019 CO2 27 07/13/2019 CL 109 07/13/2019 BUN 13 07/13/2019 CREAT 0.68 07/13/2019 GLU 99 07/13/2019 ALB 3.7 07/13/2019 SGOT 16 07/13/2019 SGPT 18 07/13/2019 TBILI 0.5 07/13/2019 ALKPHOS 56 07/13/2019 TP 6.9 07/13/2019 CA 8.9 07/13/2019 GFR > 60 07/13/2019 BP Readings from Last 5 Encounters: 03/26/22 128/70 10/04/21 138/80 07/25/21 (!) 160/82 04/26/20 124/80 04/22/20 130/80 * Telephone Encounter - Gisella Wilson - 07/18/2022 11:42 AM EDT Miley 09/24/22 documented in this encounter Plan of Treatment Not on file documented as of this encounter Visit Diagnoses Not on filedocumented in this encounter Care Teams Sales Professional Bilingual Relationship Specialty Start Date End Date Nico Martinez MD PCP - General Internal Medicine 03/26/22 01/30/24 [facility], Pcp PCP - General Internal Medicine 01/31/24 documented as of this encounter
--- OUTSIDE RECORDS SUMMARY | 2024-06-15 11:10 | XMS_ITS | Encounter Summary ---
Author Organization [facility] Address [address] [place] [address] Care Team Providers Care Press Writer Name Role Phone Community, Pcp Primary Care Provider Unavailabl e Reason for Visit * Reason Onset Date Comments APPOINTMENT 01/31/2024 Encounter Details Date Type Department Care Team Description 01/31/2024 Telephone Internal Medicine - [address], [address] [place] [address] Nico Martinez MD [address] [place], [place] [id number] APPOINTMENT Social History Tobacco Use Types Packs/Day Years [...] encounter Miscellaneous Notes * Telephone Encounter - Lexi Kumari - 01/31/2024 11:04 AM EDT FYI patient has secured another pcp only due to [facility] vs [facility] coverage Patient was uncertain if our office would ever accept Her insurance. She does however wish to convey to Dr. Martinez -olesya Thank you for his care. documented in this encounter Plan of Treatment Not on file documented as of this encounter Visit Diagnoses Not on filedocumented in this encounter Care Teams Press Writer Relationship Specialty Start Date End Date Community, Pcp PCP - General Internal Medicine 01/31/24 documented as of this encounter
--- OUTSIDE RECORDS SUMMARY | 2024-06-15 11:10 | XMS_ITS | Encounter Summary ---
Author Organization [facility] Address [address] [place] [address] Care Team Providers Care Spinneret Cleaner Name Role Phone Brian Gilliam MD Primary Care Provider Savanna Pozo PA-C Primary Care Provider + Ceci Taylor MD Primary Care Provider [phone] Nico Martinez MD Primary Care Provider [phone] [facility], Pcp Primary [facility] Encounter Details Date Type Department Care Team Description 08/16/2020 Windshield Installer Report Medical Records [address] [place] [address] Evie Campoverde MD Social History Tobacco Use Types Packs/Day Years [...] on filedocumented in this encounter Care Teams Spinneret Cleaner Relationship Specialty Start Date End Date Brian Gilliam MD PCP - General Internal Medicine 05/21/19 03/26/21 Savanna Lerner PA-C PCP - General Internal Medicine 03/27/21 05/14/21 Ceci Taylor MD PCP - General Internal Medicine 05/15/21 03/25/22 Nico Martinez MD PCP - General Internal Medicine 03/26/22 01/30/24 [facility], Pcp PCP - General Internal Medicine 01/31/24 documented as of this encounter
--- OUTSIDE RECORDS SUMMARY | 2024-06-15 11:10 | XMS_ITS | Encounter Summary ---
Author Organization [facility] Address [address] [place] [address] Care Team Providers Care Ceramics Artist Name Role Phone Brian Gilliam MD Primary Care Provider Savanna Pozo PA-C Primary Care Provider + Ceci Taylor MD Primary Care Provider [phone] Nico Martinez MD Primary Care Provider [phone] [facility], Pcp Primary Care [facility] Encounter Details Date Type Department Care Team Description 05/11/2020 Buckle Sewer Machine Report Medical Records [address] [place] [address] Emilia Durbin PA-C Social History Tobacco Use Types Packs/Day Years [...] Assigned at Date Recorded Not on file COVID-19 Exposure Response Date Recorded In the last month, have you been in contact with someone who was confirmed or suspected to have Coronavirus / COVID-19? No / Unsure 04/26/2020 8:01 AM EST documented as of this encounter Plan of Treatment Not on file documented as of this encounter Visit Diagnoses Not on filedocumented in this encounter Care Teams Ceramics Artist Relationship Specialty Start Date End Date Brian Gilliam MD PCP - General Internal Medicine 05/21/19 03/26/21 Savanna Lerner PA-C PCP - General Internal Medicine 03/27/21 05/14/21 Ceci Taylor MD PCP - General Internal Medicine 05/15/21 03/25/22 Nico Martinez MD PCP - General Internal Medicine 03/26/22 01/30/24 [facility], Pcp PCP - General Internal Medicine 01/31/24 documented as of this encounter
--- OUTSIDE RECORDS SUMMARY | 2024-06-15 11:10 | XMS_ITS | Encounter Summary ---
Author Organization [facility] Address [address] [place] [address] Care Team Providers Care Household Chores Name Role Phone Brian Gilliam MD Primary Care Provider UnaSavanna Hayes PA-C Primary Care Provider + Ceci Taylor MD Primary Care Provider [phone] Nico Martinez MD Primary Care Provider [phone] [facility], Pcp [facility] Encounter Details Date Type Department Care Team Description 03/16/2020 Jewelry Technician Report Medical Records [address] [place] [id number] Evie Campoverde MD Social History Tobacco Use [...] on filedocumented in this encounter Care Teams Household Chores Relationship Specialty Start Date End Date Brian Gilliam MD PCP - General Internal Medicine 05/21/19 03/26/21 Savanna Lerner PA-C PCP - General Internal Medicine 03/27/21 05/14/21 Ceci Taylor MD PCP - General Internal Medicine 05/15/21 03/25/22 Nico Martinez MD PCP - General Internal Medicine 03/26/22 01/30/24 [facility] License [facility], Pcp PCP - General Internal Medicine 01/31/24 documented as of this encounter
--- OUTSIDE RECORDS SUMMARY | 2024-06-15 11:10 | XMS_ITS | Encounter Summary ---
Author Organization [facility] Address [address] [place] [address] Care Team Providers Care Conference Center Manager Name Role Phone Nico Martinez MD Primary Care Provider [phone] [facility], Pcp Primary Care Provider Unavailabl e Reason for Visit * Reason Onset Date Comments refill request 01/27/2024 Encounter Details Date Type Department Care Team Description 01/27/2024 Refill Internal Medicine - [address], [address] [place] [address] Nico Martinez MD [address] [place] [address] refill request Social History Tobacco Use Types [...] encounter Miscellaneous Notes * Telephone Encounter - Jeniffer Garg - 01/27/2024 12:29 PM EDT NIKHIL 06/27/2023 NOV 11/25/2024 BP Readings from Last 3 Encounters: 06/27/23 130/88 09/24/22 123/80 07/27/22 122/70 No visits with results within 1 Month(s) from this visit. Latest known visit with results is: Orders Only on 07/13/2019 Component Date Value ??? GLUCOSE 07/13/2019 99 ??? Blood Urea Nitrogen 07/13/2019 13 ??? CREAT 07/13/2019 0.68 ? ? GLOMERULAR FILTRATION RA* 07/13/2019 > 60 ??? NA 07/13/2019 139 ??? K 07/13/2019 4.2 ??? CL 07/13/2019 109 ??? CARBON DIOXIDE (CO2) 07/13/2019 27 ??? ANION GAP 07/13/2019 3 ??? CALCIUM 07/13/2019 8.9 ??? Albumin 07/13/2019 3.7 ??? BILIRUBIN TOTAL 07/13/2019 0.5 ??? SGOT 07/13/2019 16 ??? SGPT 07/13/2019 18 ??? TOTAL PROTEIN (TP) 07/13/2019 6.9 ??? ALK PHOS 07/13/2019 56 ??? WHITE BLOOD COUNT 07/13/2019 5.9 ??? RED BLOOD COUNT 07/13/2019 4.2 ??? Hemoglobin 07/13/2019 13.3 ??? Hematocrit 07/13/2019 41.8 ??? MEAN CORPUSCULAR VOLUME 07/13/2019 100.7 (H) ??? MEAN CORPUSCULAR HEMOGLO* 07/13/2019 32.0 ??? MEAN CORPUSCULAR HGB CONC 07/13/2019 31.8 (L) ??? RED CELL DISTRIBUTION WI* 07/13/2019 13.1 ??? PLT COUNT 07/13/2019 321 ??? MEAN PLATELET VOLUME 07/13/2019 10.8 ??? NRBC % AUTO 07/13/2019 0.0 ??? NEUTROPHILS % 07/13/2019 70.6 ??? LYMPH % 07/13/2019 20.9 ??? MONO % 07/13/2019 6.3 ??? EOS % 07/13/2019 1.2 ??? BASO % 07/13/2019 0.7 ??? IMMATURE GRANULOCYTES % 07/13/2019 0.3 ??? NRBC # AUTO 07/13/2019 0.00 ??? NEUT # 07/13/2019 4.13 ??? LYMPH # 07/13/2019 1.22 ??? MONO # 07/13/2019 0.37 ??? EOS # 07/13/2019 0.07 ??? BASO # 07/13/2019 0.04 ??? IMMATURE GRANULOCYTES # 07/13/2019 0.02 ??? Cholesterol 07/13/2019 230 (H) ??? HDL CHOLESTEROL 07/13/2019 93 ??? TC-HDLC RATIO 07/13/2019 2.5 ??? TRIGLYCERIDES 07/13/2019 81 ??? LDL CALCULATED 07/13/2019 121 (H) documented in this encounter Plan of Treatment Not on file documented as of this encounter Visit Diagnoses Not on filedocumented in this encounter Care Teams Conference Center Manager Relationship Specialty Start Date End Date Nico Martinez MD PCP - General Internal Medicine 03/26/22 01/30/24 [facility], Pcp PCP - General Internal Medicine 01/31/24 documented as of this encounter
--- OUTSIDE RECORDS SUMMARY | 2024-06-15 11:10 | XMS_ITS | Encounter Summary ---
Author Organization [facility] Address [address] [place] [address] Care Team Providers Care Log Loader Helper Name Role Phone Nico Martinez MD Primary Care Provider [phone] [facility], Pcp Primary Care Provider Unavailabl e Encounter Details Date Type Department Care Team Description 03/18/2023 Wharf Helper Report Medical Records [address] [place] [id number] Chavez Hadley MD Social History Tobacco Use Types Packs/Day [...] on filedocumented in this encounter Care Teams Log Loader Helper Relationship Specialty Start Date End Date Nico Martinez MD PCP - General Internal Medicine 03/26/22 01/30/24 [facility], Pcp PCP - General Internal Medicine 01/31/24 documented as of this encounter
--- OUTSIDE RECORDS SUMMARY | 2024-06-15 11:10 | XMS_ITS | Encounter Summary ---
Author Organization [facility] Address [address] [place] [address] Care Team Providers Care Home Health Occupational Therapist Name Role Phone Savanna Lerner PA-C Primary Care Provider + Ceci Taylor MD Primary Care Provider [phone] Nico Martinez MD Primary Care Provider [phone] [facility], Pcp Primary Care Provider [facility] Encounter Details Date Type Department Care Team Description 04/24/2021 Biological Science Technician Report Medical Records [address] [place] [id number] [place] [address] Social History Tobacco Use Types Packs/Day Years [...] on filedocumented in this encounter Care Teams Home Health Occupational Therapist Relationship Specialty Start Date End Date Savanna Lerner PA-C PCP - General Internal Medicine 03/27/21 05/14/21 Ceci Taylor MD PCP - General Internal Medicine 05/15/21 03/25/22 Nico Martinez MD PCP - General Internal Medicine 03/26/22 01/30/24 [facility], Pcp PCP - General Internal Medicine 01/31/24 documented as of this encounter
--- OUTSIDE RECORDS SUMMARY | 2024-06-15 11:10 | XMS_ITS | Clinical Summary ---
Author Organization [facility] Address [address] [place] [address] Care Team Providers Care Real Estate Sales Supervisor Name Role Phone Community, Pcp Primary Care Provider Unavailabl e Allergies Active Allergy Reactions Severity Noted Date Comments Humira 04/22/2020 Medications Medication Sig Dispensed Refills Start Date End Date Status leflunomide (ARAVA) 20 MG tablet Take 20 mg by mouth daily. 0 Active valsartan (DIOVAN) 160 MG tablet 1 p.o. daily 30 Tablet 5 01/27/2024 07/24/2024 Active Active Problems Problem Noted Date History of cholecystectomy 07/27/2022 Rheumatoid arthritis Overview: Seropositive rheumatoid arthritis, [facility] rheumatology Osteoporosis Family History Medical History Relation Name Comments CA of Pancreas Father [place] Mother Relation Name Status Comments Father Mother Social History Tobacco Use Types Packs/Day Years Used Date Smoking Tobacco: Former Cigarettes Q uit: 05/06/1991 Smokeless Tobacco: Never Tobacco Cessation:Counseling Given: Not Answered Alcohol Use Standard Drinks/Week Comments No 0 [...] Assigned at Date Recorded Not on file Last Filed Vital Signs Vital Sign Reading Time Taken Comments Blood Pressure 130/88 06/27/2023 3:17 PM EST Pulse 84 06/27/2023 3:17 PM EST Temperature 36.7 ??C (98 ??F) 06/27/2023 3:17 PM EST Respiratory Rate 16 04/22/2020 10:17 AM EST Oxygen Saturation 95% 06/27/2023 3:17 PM EST Inhaled Oxygen Concentration - - Weight 73.2 kg (161 lb 6.4 oz) 06/27/2023 3:17 P M EST Height 162.6 cm (5' 4 ) 06/27/2023 3:17 PM EST Body Mass Index 27.7 06/27/2023 3:17 PM EST Plan of Treatment Health Maintenance Due Date Last Done Comments Covid-19 Vaccine (#1) 1955 HEPATITIS C SCREENING 1972 DTAP/TDAP/TD (1 - Tdap) 1973 SHINGLES VACCINE (1 of 2) 2004 MAMMOGRAM 02/11/2020 02/10/2019 (Exte rnal Completion) PNEUMOCOCCAL VACCINE (2 - PP SV23 or PCV20) 02/18/2020 02/17/2019 BONE DENSITY SCREENING 04/21/2021 9 (External Completion) INFLUENZA (#1) 2024 BMI CHECK/ADVISE 05/06/2024 07/27/2022, , 10/04/2021, Additional history exists CHOLESTEROL SCREENING 07/12/2024 07/13/2019 COLON CANCER SCREENING 05/03/2030 0, 05/03/2020 (Completed) Care Teams Real Estate Sales Supervisor Relationship Specialty Start Date End Date Community, Pcp PCP - General Internal Medicine 01/31/24
--- OUTSIDE RECORDS SUMMARY | 2024-06-15 11:10 | XMS_ITS | Encounter Summary ---
Author Organization [facility] Address [address] [place] [address] Care Team Providers Care Hot Top Liner Name Role Phone Brian Gilliam MD Primary Care Provider Savanna Pozo PA-C Primary Care Provider + Ceci Taylor MD Primary Care Provider [phone] Nico Martinez MD Primary Care Provider [phone] [facility], Pcp Primary Care Provider [facility] e Encounter Details Date Type Department Care Team Description 05/24/2020 Video Engineer Report Medical Records [address] [place] [address] Evie Campoverde MD Social History Tobacco Use [...] on filedocumented in this encounter Care Teams Hot Top Liner Relationship Specialty Start Date End Date Brian [...]
--- OUTSIDE RECORDS SUMMARY | 2024-06-15 11:10 | XMS_ITS | Encounter Summary ---
Author Organization [facility] Address [address] [place] [address] Care Team Providers Care Army Helicopter Pilot Name Role Phone Nico Martinez MD Primary Care Provider [phone] [facility], Pcp Primary Care Provider Unavailabl e Encounter Details Date Type Department Care Team Description 11/06/2023 Telephone Internal Medicine - [place] [address], [address] [place] [address] Nico Martinez MD [address] [place] [address] Social History Tobacco Use Types Packs/Day Years [...] encounter Miscellaneous Notes * Telephone Encounter - Ncio Martinez MD - 11/06/2023 11:40 AM EDT will keep filling the prescriptions hopefully the [facility] thing will be sorted out * Telephone Encounter - Lenny Guan - 11/06/2023 10:[address] martinez please advise message below * Telephone Encounter - Kalpana Ramirez - 11/06/2023 10:13 AM EDT pt is [facility] and is having a new pcp she will see in January. is asking if Dr. Martinez can continue refilling her meds until then. documented in this encounter Plan of Treatment Not on file documented as of this encounter Visit Diagnoses Not on filedocumented in this encounter Care Teams Army Helicopter Pilot Relationship Specialty Start Date End Date Nico Martinez MD PCP - General Internal Medicine 03/26/22 01/30/24 [facility], Pcp PCP - General Internal Medicine 01/31/24 documented as of this encounter
--- OUTSIDE RECORDS SUMMARY | 2024-06-15 11:10 | XMS_ITS | Encounter Summary ---
Author Organization [facility] Address [address] [place] [address] Care Team Providers Care Dye Automation Operator Name Role Phone Ceci Taylor MD Primary Care Provider [phone] Nico Martinez MD Primary Care Provider [phone] [facility], Pcp Primary Care Provider Unavailabl e Reason for Visit * Reason Onset Date Comments Call From Md Office 11/24/2021 Encounter Details Date Type Department Care Team Description 11/24/2021 Telephone Internal Medicine - [address], [address] [place], [place] [id number] Ceci Taylor MD [address] [place] [phone] Call From Md Office Social History Tobacco Use Types Packs/Day Years [...] encounter Miscellaneous Notes * Telephone Encounter - Yael Vogt M.A. - 12/01/2021 11:30 AM EDT Last office vist note printed and faxed over to # provided below. * Telephone Encounter - Christiano Bernal - 11/24/2021 9:20 AM EDT Eloise from [facility] calling looking for clinical notes for patient to be faxed over to [phone]. States that the patient was referred to them by us but I do not see the information anywhere. documented in this encounter Plan of Treatment Not on file documented as of this encounter Visit Diagnoses Not on filedocumented in this encounter Care Teams Dye Automation Operator Relationship Specialty Start Date End Date Ceci Taylor MD PCP - General Internal Medicine 05/15/21 03/25/22 Nico Martinez MD PCP - General Internal Medicine 03/26/22 01/30/24 [facility], Pcp PCP - General Internal Medicine 01/31/24 documented as of this encounter
[2024-06-15 14:25] LABS: Cholesterol 221 mg/dL (<200); HDL Cholesterol 70 mg/dL (>40); LDL Cholesterol Calculated 130 mg/dL (<100); Triglycerides 109 mg/dL (<150)
== END 2024-06-15 10:18 | disposition home or self-care (01) ==
LOC: HO.WFDLDS 10:17
PROVIDERS: Visit Provider Nurse Practitioner Family
DX: I10 Essential (primary) hypertension (principal); E78.00 Pure hypercholesterolemia, unspecified; Z79.899 Other long term (current) drug therapy
CPT/HCPCS: 36415; 80061; 99212

== ENCOUNTER 2024-08-17 09:39 | Outpatient (AMB) | payer MEDICARE, SELFPAY ==
--- NOTE | 2024-08-17 09:56 | A.OFFPC_ITS ---
Vital Signs 08/17/24 10:01 08/17/24 10:14 Height 5 ft 4 in Weight 155 lb 2 oz BMI 26.6 BP 171/71 H 160/80 H Blood Pressure Location Rt brachial Rt brachial Position Sitting Sitting Respiration 16 Pulse 78 Pulse Source Pulse Oximeter Temp 97.9 F Temp Source Oral Pulse Oximetry (%) 98 Oxygen Delivery Method Room Air Intake Visit Reasons: 2 mos HTN and LP review Intake Note: patient here for 2 month follow up on HTN and lab review Verse Writer Required: No Is last menstrual period known: No Post menopausal: No Patient : No Allergies adalimumab [Humira] Allergy (Severe, Verified 08/17/24 10:09) rash Medication List - Last Reconciled 08/17/24 by Scarlet Jewell CNP leflunomide 20 mg (2 x 10 mg) PO DAILY multivitamin 1 tab PO DAILY valsartan 160 mg PO DAILY Tobacco use date assessed: 08/17/24 Fall risk assessment: No Falls in past year Last assessed Fall Risk: 08/17/24 Dental Screening Dental Screen Date: 08/17/24 Did you have a dental visit in the last 12 months?: Yes Did you have a dental problem in the last 6 months where you did not have access to dental care?: No Was dental information given to patient?: Patient has dentist HPI HPI Comments History of Present Illness Details 69-year-old female presents for hyperten geraldine restarted and lipid panel review follow-up. She admits to taking her medications as prescribed without adverse reactions. She has been consuming significant amount of cheese. She exercises routinely. She offers no complaints and denies acute symptoms at this time. [facility] Medical History Anxiety Surgical History History of cholecystectomy H/O left wrist surgery Family History Mother Heart attack High blood pressure Maternal Grandfather Heart attack Brother Alcohol abuse Social History Household Members: None Housing: Apartment Alcohol intake: former Patient Tobacco Use Status: Former Tobacco user e-Cigarette/Vaping Use: Never Used Patient : No service: No Current occupational status: retired Current occupational exposures/hazards: No Cognitive needs: No Hearing needs: No Vision needs: Yes Questionnaire PHQ-9 Over the last 2 weeks, how often have you been bothered by any of the following problems? 1. Little interest or pleasure in doing things: not at all 2. Feeling down, depressed, or hopeless: not at all 3. Trouble falling or staying asleep, or sleeping too much: not at all 4. Feeling tired or having little energy: not at all 5. Poor appetite or overeating: not at all 6. Feeling bad about yourself - or that you are a failure or have let yourself or your family down: not at all 7. Trouble concentrating on things, such as reading the newspaper or watching television: not at all 8. Moving or speaking so slowly that other people could have noticed. Or the opposite - being so fidgety or restless that you have been moving around a lot more than usual: not at all 9. Thoughts that you would be better off or of hurting yourself in some way: not at all Total score: 0 Depression Screening Interpretation: Negative Depression Screening Done: Yes Source: Developed by Drs. Carlos Loyola, Alba Lee, Darian Green and colleagues, with an educational marcelo from [employer]. Thrive Questionnaire Date Thrive assessed: 01/21/24 I am a: Patient What is your living situation today?: I have a steady place to live Within the past 12 months, did the food you bought not last and you didn't have the money to get more?: Never true Within the past 12 months, did you worry whether your food would run out before you got money to buy more?: Never true Do you have trouble paying for medicines?: No Do you have trouble getting transportation to medical appointments?: No Do you have trouble paying your heating and electricity bill?: No Do you have trouble taking care of your child, family member or friend?: No Do you have trouble with day-to-day activities such as bathing, preparing meals, shopping, managing finances, etc.?: No Are you currently unemployed and looking for a job?: No Are you interested in more education?: No Please select the resources that you would like help with: None Currently or been in a relationship where the following occur: No concerns reported THRIVE Score: 0 AUDIT C Alcohol Use Questionnaire (AUDIT-C) 1. How often do you have a drink containing alcohol?: Never Total Score: 0 SALLIE-7 AMB Questionnaire SALLIE-7 Date SALLIE - 7 assessed: 01/21/24 Feeling nervous, anxious, or on edge: 0 = Not at all Not being able to stop or control worryin = Not at all Worrying too much about different things: 0 = Not at all Trouble relaxin = Not at all Being so restless that it is hard to sit still: 0 = Not at all Becoming easily annoyed or irritable: 0 = Not at all Feeling afraid as if something awful might happen: 0 = Not at all Total SALLIE-7 score (0-4 normal; 5-9 mild; 10-14 moderate; 15-21 severe): 0 Source: Developed by Drs. Carlos Loyola, Alba Lee, Darian Green and colleagues, with an educational marcelo from [employer]. Review of Systems Const Details: Const Denies chills, Denies fatigue, Denies fever(s), Denies headache(s) and Denies weakness ENT Denies dizziness and Denies headache(s) Card Denies chest pain, Denies lightheadedness, Denies dyspnea and Denies other (Palpitations) Resp Denies cough, Denies dyspnea, Denies wheezing and Denies other ( shortness of breath) GI Denies abdominal pain, Denies melena, Denies hematochezia, Denies change in bowel habits, Denies dyspepsia and Denies nausea Denies hematuria and Denies dysuria Musc Denies abnormal gait, Denies myalgias, Denies arthralgias, Denies numbness and Denies tingling Skin/Breast Denies rash, Denies unusual bruising and Denies wounds Neuro Denies abnormal gait, Denies dizziness, Denies headache(s), Denies memory loss, Denies numbness, Denies Sensory deficit (Neuro), Denies tingling and Denies weakness Psych Denies anxiety, Denies depression, Denies memory loss Endo Denies cold intolerance, Denies fatigue, Denies heat intolerance, Denies polydipsia and Denies polyuria Aller/Immun Denies wheezing Physical exam (Primary Care) Vital Signs: Last Vital Signs Temp 97.9 F 08/17/24 10:01 Pulse 78 08/17/24 10:01 Resp 16 08/17/24 10:01 BP 171/71 H 08/17/24 10:01 Pulse Ox 98 08/17/24 10:01 Oxygen Delivery Method Room Air 08/17/24 10:01 BMI result Body Mass Index 26.6 Tobacco/Smoking Status: Tobacco use Status Tobacco use date assessed 08/17/24 08/17/24 10:05 Patient Tobacco Use Status Former Tobacco user 08/17/24 09:57 e-Cigarette/Vaping Use Never Used 08/17/24 09:57 PHQ-9: PHQ-9 Score PHQ-9: Total score 0 08/17/24 09:57 Depression Screening Interpretation: Negative Thrive Assessment: Date of Thrive Assessment Date Thrive assessed 01/21/24 08/17/24 09:57 Currently or been in a relationship where the following occur: No concerns reported Const Other: General: no acute distress and well developed Nutritional Appearance: well nourished Orientation/consciousness: patient oriented x3 HENMT Head: Yes normocephalic and Yes atraumatic Eyes General: appearance normal, both eyes and all related structures Pupils: Equal, round and reactive pupils present EOM: EOMs intact bilaterally Resp Effort & Inspection: normal respiratory effort Auscultation: clear to auscultation bilaterally Cardio Rate: regular rate Rhythm: regular rhythm Heart sounds: S1 normal heart sound present, S2 normal heart sound present, no gallops, no murmurs and no rubs GI Palpation (GI): No Abdominal aortic bruit present, Soft to palpation, nontender, No hepatosplenomegaly present and No Rebound tenderness present Auscultation: normal bowel sounds General: Yes no CVA tenderness Back/Spine/Pelvis Back: no CVA tenderness Cervical Spine: cervical ROM normal and No Cervical spine tenderness Thoracic/Lumbar Spine: thoraco-lumbar ROM normal, No pain with thoraco-lumbar ROM, No thoracic spinal tenderness and No lumbar spinal tenderness Extrem General: Yes normal to inspection, No edema and No calf tenderness Skin General: warm and dry. Normal skin color. Normal skin turgor Neuro General: patient oriented x3, gait normal and no focal neuro deficit Cranial nerves: Yes Equal, round and reactive pupils present Cognition (Neuro): normal cognition Gait exam (Neuro): Normal gait present Sensory Exam: No Sensory deficit (Neuro) Psych Appearance: grossly normal Affect: normal affect Attitude: cooperative Thought process: Normal thought process present Coding Level of Care Code Est Pt Level 3 (20050) Diagnoses Hypertension I10 Hypercholesterolemia E78.00 Assessment & Plan Assessment & Plan (1) Hypertension: Code(s): I10 - Essential (primary) hypertension Category: Medical Plan: Resting blood pressure is 160/80, above goal of less than 140/90. Declines valsartan dose increase at this time and attributes her elevated blood pressure readings to cheese consumption. She will make dietary changes and follow-up for blood pressure check in 2 weeks. Healthy diet and routine exercise encouraged. Follow-up in 2 weeks or sooner with symptoms or concerns. Verbalized understanding and agreed with treatment plan. (2) Hypercholesterolemia: Code(s): E78.00 - Pure hypercholesterolemia, unspecified Category: Medical Plan: Recent total cholesterol and LDL levels the slightly elevated, 221 and 130 respectively. She has been consuming significant amount of cheese. Advised to limit foods high in saturated fat and avoid foods high in trans fat. Routine exercise encouraged. Will recheck lipid panel levels in 2 months. Verbalized understanding and agreed with treatment plan. Orders: Orders Lipid Panel 2 Months E78.00 - Pure hypercholesterolemia, unspecified Medications: Changed From valsartan 160 mg PO DAILY To valsartan 160 mg PO DAILY 30 days 30 tabs 3RF
[2024-08-17 10:01] VITALS: BP 171/71; PULSE 78; RESP 16; TEMP 36.6; O2SAT 98; BMI 26.6
[2024-08-17 10:14] VITALS: BP 160/80
--- OUTSIDE RECORDS SUMMARY | 2024-08-17 10:48 | XMS_ITS | Encounter Summary ---
Author Organization [facility] Address [address] [place] [address] Care Team Providers Care Research Compliance Specialist Name Role Phone Ceci Taylor MD Primary Care Provider [phone] Nico Martinez MD Primary Care Provider [phone] [facility], Pcp Primary Care Provider Unavailabl e Reason for Visit * Reason Onset Date Comments Call From Md Office 11/24/2021 Encounter Details Date Type Department Care Team Description 11/24/2021 Telephone Internal Medicine - [address], [address] [place], [place] [id number] Ceci Taylor MD [address] [place] [phone] Call From Md Office Social History [...] - 11/24/2021 9:20 AM EDT Eloise from [facility]ology calling looking for clinical notes for patient to be faxed over to [phone]. States that the patient was referred to them by us but I do not see the information anywhere. documented in this encounter Plan of Treatment Not on file documented as of this encounter Visit Diagnoses Not on filedocumented in this encounter Care Teams Research Compliance Specialist Relationship Specialty Start Date End Date Ceci Taylor MD PCP - General Internal Medicine 05/15/21 03/25/22 Nico Martinez MD PCP - General Internal Medicine 03/26/22 01/30/24 [facility], Pcp PCP - General Internal Medicine 01/31/24 documented as of this encounter
--- OUTSIDE RECORDS SUMMARY | 2024-08-17 10:48 | XMS_ITS | Encounter Summary ---
Author Organization [facility] Address [address] [place] [address] Care Team Providers Care Account Associate Name Role Phone Brian Gilliam MD Primary Care Provider Savanna Pozo PA-C Primary Care Provider + Ceci Taylor MD Primary Care Provider [phone] Nico Martinez MD Primary Care Provider [phone] [facility], Pcp Primary Care Provider Unavailabl e Reason for Visit * Reason Onset Date Comments Medication 07/13/2019 Colonoscopy Encounter Details Date Type Department Care Team Description 07/13/2019 Refill Gastroenterology - [address] [place] [address] Janis [place] MD [address] [place] [id number] Medication (Colonoscopy) Social History Tobacco Use Types Packs/Day Years [...] on filedocumented in this encounter Care Teams Account Associate Relationship Specialty Start Date End Date Brian Gilliam MD PCP - General Internal Medicine 05/21/19 03/26/21 Savanna Lerner PA-C PCP - General Internal Medicine 03/27/21 05/14/21 Ceci Taylor MD PCP - General Internal Medicine 05/15/21 03/25/22 Nico Martinez MD PCP - General Internal Medicine 03/26/22 01/30/24 [facility], Pcp PCP - General Internal Medicine 01/31/24 documented as of this encounter
--- OUTSIDE RECORDS SUMMARY | 2024-08-17 10:48 | XMS_ITS | Encounter Summary ---
Author Organization [facility] Address [address] [place] [address] Care Team Providers Care Podiatric Assistant Name Role Phone Brian Gilliam MD Primary Care Provider Savanna Pozo PA-C Primary Care Provider + Ceci Taylor MD Primary Care Provider [phone] Nico Martinez MD Primary Care Provider [phone] [facility], [facility]cp [facility] Encounter Details Date Type Department Care Team Description 05/11/2020 Hospitality Director Report Medical Records [address] [place] [id number] Emilia Durbin PA-C Social History Tobacco Use [...] on filedocumented in this encounter Care Teams Podiatric Assistant Relationship Specialty Start Date End Date Brian Gilliam MD PCP - General Internal Medicine 05/21/19 03/26/21 Savanna Lerner PA-C PCP - General Internal Medicine 03/27/21 05/14/21 Ceci Taylor MD PCP - General Internal Medicine 05/15/21 03/25/22 Nico Martinez MD PCP - General Internal Medicine 03/26/22 01/30/24 [facility], Pcp PCP - General Internal Medicine 01/31/24 documented as of this encounter
--- OUTSIDE RECORDS SUMMARY | 2024-08-17 10:48 | XMS_ITS | Encounter Summary ---
Author Organization [facility] Address [address] [place] [address] Care Team Providers Care Production Packager Name Role Phone Ceci Taylor MD Primary Care Provider [phone] Nico Martinez MD Primary Care Provider [phone] [facility], Pcp Primary Care Provider Unavailabl e Reason for Visit * Reason Onset Date Comments refill request 10/24/2021 Encounter Details Date Type Department Care Team Description 10/24/2021 Refill Internal Medicine - [address], [address] [place], [place] [phone] Ceci Taylor MD [address] [place] [phone] refill request Social History Tobacco Use Types [...] Exposure Response Date Recorded In the last 10 days, have yo u been in contact with someone who was confirmed or suspected to have Coronavirus/COVID-19? No / Unsure 10/04/2021 8:34 AM EDT documented as of this encounter Miscellaneous Notes * Telephone Encounter - Sofi Edwards - 10/24/2021 12:41 PM EDT BP Readings from Last 3 Encounters: 10/04/21 138/80 07/25/21 (!) 160/82 04/26/20 124/80 * Telephone Encounter - Winnie Elaine - 10/24/2021 11:31 AM EDT NIKHIL-10/04/2021 NOV-03/06/2022 documented in this encounter Plan of Treatment Not on file documented as of this encounter Visit Diagnoses Not on filedocumented in this encounter Care Teams Production Packager Relationship Specialty Start Date End Date Ceci Taylor MD PCP - General Internal Medicine 05/15/21 03/25/22 Nico Martinez MD PCP - General Internal Medicine 03/26/22 01/30/24 [facility], [facility]cp PCP - General Internal Medicine 01/31/24 documented as of this encounter
--- OUTSIDE RECORDS SUMMARY | 2024-08-17 10:48 | XMS_ITS | Encounter Summary ---
Author Organization [facility] Address [address] [place] [address] Care Team Providers Care Health Unit Coordinator Name Role Phone Nico Martinez MD Primary Care Provider [phone] [facility], Pcp Primary Care Provider Unavailabl e Encounter Details Date Type Department Care Team Description 11/06/2023 Telephone Internal Medicine - [place] [address], [address] [place] [address] Nico Martinez MD [address] [place] [address] Social History Tobacco Use Types Packs/Day Years [...] encounter Miscellaneous Notes * Telephone Encounter - Nico Martinez MD - 11/06/2023 11:40 AM EDT will keep filling the prescriptions hopefully the [facility] thing will be sorted out * Telephone Encounter - Lenny Guan - 11/06/2023 10:[address] martinez please advise message below * Telephone Encounter - Kalpana Ramirez - 11/06/2023 10:13 AM EDT pt is [facility] and is having a new pcp she will see in January. is asking if Dr. Martinez can continue refilling her meds until then. documented in this encounter Plan of Treatment Not on file documented as of this encounter Visit Diagnoses Not on filedocumented in this encounter Care Teams Health Unit Coordinator Relationship Specialty Start Date End Date Nico Martinez MD PCP - General Internal Medicine 03/26/22 01/30/24 [facility], Pcp PCP - General Internal Medicine 01/31/24 documented as of this encounter
--- OUTSIDE RECORDS SUMMARY | 2024-08-17 10:48 | XMS_ITS | Encounter Summary ---
Author Organization [facility] Address [address] [place] [address] Care Team Providers Care Case Mgr Name Role Phone Nico Martinez MD Primary Care Provider [phone] [facility], [facility]cp Primary Care Provider Unavailabl e Encounter Details Date Type Department Care Team Description 11/06/2023 Orders Only Internal Medicine - [address], [address] [place] [address] Nico Martinez MD [address] [place] [address] Social History Tobacco Use Types Packs/Day Years [...] on filedocumented in this encounter Care Teams Case Mgr Relationship Specialty Start Date End Date Nico Martinez MD PCP - General Internal Medicine 03/26/22 01/30/24 [facility], Pcp PCP - General Internal Medicine 01/31/24 documented as of this encounter
--- OUTSIDE RECORDS SUMMARY | 2024-08-17 10:48 | XMS_ITS | Encounter Summary ---
Author Organization [facility] Address [address] [place] [address] Care Team Providers Care Voice Engineer Name Role Phone Brian Gilliam MD Primary Care Provider Unava Savanna Dean PA-C Primary Care Provider + Ceci Taylor MD Primary Care Provider [phone] Nico Martinez MD Primary Care Provider [phone] [facility], Pcp [facility] Encounter Details Date Type Department Care Team Description 03/16/2020 Insect Control Inspector Report Medical Records [address] [place] [id number] Evie Campoverde MD Social History Tobacco Use [...] on filedocumented in this encounter Care Teams Voice Engineer Relationship Specialty Start Date End Date Brian Gilliam MD PCP - General Internal Medicine 05/21/19 03/26/21 Savanna Lerner PA-C PCP - General Internal Medicine 03/27/21 05/14/21 Ceci Tyalor MD PCP - General Internal Medicine 05/15/21 03/25/22 Nico Martinez MD PCP - General Internal Medicine 03/26/22 01/30/24 [facility], Pcp PCP - General Internal Medicine 01/31/24 documented as of this encounter
--- OUTSIDE RECORDS SUMMARY | 2024-08-17 10:48 | XMS_ITS | Encounter Summary ---
Author Organization [facility] Address [address] [place] [address] Care Team Providers Care Applications Support Engineer Name Role Phone Brian Gilliam MD Primary Care Provider Unava Savanna Dean PA-C Primary Care Provider + Ceci Taylor MD Primary Care Provider [phone] Nico Martinez MD Primary Care Provider [phone] [facility], Pcp Primary Care Provider Unavailabl e Encounter Details Date Type Department Care Team Description 06/15/2019 Release of Information Medical Records [address] [place] [address] Abstract, Provider Social History Tobacco Use Types Packs/Day Years Used Date Smoking Tobacco: Never Assessed Alcohol Habits Answer Date Recorded How often [...] on filedocumented in this encounter Care Teams Applications Support Engineer Relationship Specialty Start Date End Date [...]
--- OUTSIDE RECORDS SUMMARY | 2024-08-17 10:48 | XMS_ITS | Encounter Summary ---
Author Organization [facility] Address [address] [place] [address] Care Team Providers Care Agricultural Economist Name Role Phone Nico Martinez MD Primary Care Provider [phone] [facility], Pcp Primary Care Provider Unavailabl e Reason for Visit * Reason Onset Date Comments refill request 07/18/2022 Encounter Details Date Type Department Care Team Description 07/18/2022 Refill Internal Medicine - [address], [address] [place] [address] Nico Martinez MD [address] [place] [address] refill request Social History Tobacco Use Types [...] * Telephone Encounter - Mary Ann Nguyen DC - 07/18/2022 11:45 AM EDT Lab Results [...] on filedocumented in this encounter Care Teams Agricultural Economist Relationship Specialty Start Date End Date Nico Martinez MD PCP - General Internal Medicine 03/26/22 01/30/24 [facility], Pcp PCP - General Internal Medicine 01/31/24 documented as of this encounter
== END 2024-08-17 10:24 | disposition home or self-care (01) ==
LOC: HO.HMCFM 09:40
PROVIDERS: PCP Nurse Practitioner Family; Visit Provider Nurse Practitioner Family
DX: I10 Essential (primary) hypertension (principal); E78.00 Pure hypercholesterolemia, unspecified

== ENCOUNTER → 2024-08-17 09:39 | Outpatient (BNVA) | payer MEDICARE, SELFPAY | PROVIDERS: PCP Nurse Practitioner Family; Visit Provider Nurse Practitioner Family | DX: I10 Essential (primary) hypertension (principal); E78.00 Pure hypercholesterolemia, unspecified | CPT/HCPCS: 99212 ==

== ENCOUNTER 2024-08-31 12:40 | Outpatient (AMB) | payer MEDICARE, SELFPAY ==
--- NOTE | 2024-08-31 12:44 | A.OFFPC_ITS ---
Vital Signs 08/31/24 12:47 08/31/24 13:13 Height 5 ft 4 in Weight 152 lb 2 oz BMI 26.1 BP 128/65 120/70 Blood Pressure Location Rt brachial Lt brachial Position Sitting Sitting Respiration 16 Pulse 81 Pulse Source Pulse Oximeter Temp 98.5 F Temp Source Oral Pulse Oximetry (%) 96 Oxygen Delivery Method Room Air Intake Visit Reasons: 2 wks HTN Intake Note: patient here for 2 wks follow up on HTN Unit Aid Required: No Is last menstrual period known: No Post menopausal: No Patient : No Allergies adalimumab [Humira] Allergy (Severe, Verified 08/31/24 13:09) rash Medication List - Last Reconciled 08/31/24 by Scarlet Jewell CNP leflunomide 20 mg (2 x 10 mg) PO DAILY multivitamin 1 tab PO DAILY valsartan 160 mg PO DAILY 30 days Tobacco use date assessed: 08/31/24 Fall risk assessment: No Falls in past year Last assessed Fall Risk: 08/31/24 Dental Screening Dental Screen Date: 08/31/24 Did you have a dental visit in the last 12 months?: Yes Did you have a dental problem in the last 6 months where you did not have access to dental care?: No Was dental information given to patient?: Patient has dentist HPI HPI Comments History of Present Illness Details 69-year-old female presents for hyperten geraldine follow-up. She admits to taking her medications as prescribed without adverse reactions. She notes that she has been making healthy dietary choices, however, she continues to consume process cheese. She has significantly cut down on her sodium intake. She offers no complaints and denies acute symptoms at this time. [facility] Medical History Anxiety Surgical History History of cholecystectomy H/O left wrist surgery Family History Mother Heart attack High blood pressure Maternal Grandfather Heart attack Brother Alcohol abuse Social History Household Members: None Housing: Apartment Alcohol intake: former Patient Tobacco Use Status: Former Tobacco user e-Cigarette/Vaping Use: Never Used service: No Current occupational status: retired Current occupational exposures/hazards: No Cognitive needs: No Hearing needs: No Vision needs: Yes Questionnaire Thrive Questionnaire Date Thrive assessed: 08/17/24 I am a: Patient What is your living situation today?: I have a steady place to live Within the past 12 months, did the food you bought not last and you didn't have the money to get more?: Never true Within the past 12 months, did you worry whether your food would run out before you got money to buy more?: Never true Do you have trouble paying for medicines?: No Do you have trouble getting transportation to medical appointments?: No Do you have trouble paying your heating and electricity bill?: No Do you have trouble taking care of your child, family member or friend?: No Do you have trouble with day-to-day activities such as bathing, preparing meals, shopping, managing finances, etc.?: No Are you currently unemployed and looking for a job?: No Are you interested in more education?: No Please select the resources that you would like help with: None Currently or been in a relationship where the following occur: No concerns reported THRIVE Score: 0 SALLIE-7 AMB Questionnaire SALLIE-7 Date SALLIE - 7 assessed: 01/21/24 Source: Developed by Drs. Carlos Loyola, Alba Lee, Darian Green and colleagues, with an educational marcelo from [employer]. Review of Systems Const Details: Const Denies chills, Denies fatigue, Denies fever(s), Denies headache(s) and Denies weakness ENT Denies dizziness and Denies headache(s) Card Denies chest pain, Denies lightheadedness, Denies dyspnea and Denies other (Palpitations) Resp Denies cough, Denies dyspnea, Denies wheezing and Denies other ( shortness of breath) GI Denies abdominal pain, Denies melena, Denies hematochezia, Denies change in bowel habits, Denies dyspepsia and Denies nausea Denies hematuria and Denies dysuria Musc Denies abnormal gait, Denies myalgias, Denies arthralgias, Denies numbness and Denies tingling Skin/Breast Denies rash, Denies unusual bruising and Denies wounds Neuro Denies abnormal gait, Denies dizziness, Denies headache(s), Denies memory loss, Denies numbness, Denies Sensory deficit (Neuro), Denies tingling and Denies weakness Psych Denies anxiety, Denies depression, Denies memory loss Endo Denies cold intolerance, Denies fatigue, Denies heat intolerance, Denies polydipsia and Denies polyuria Aller/Immun Denies wheezing Physical exam (Primary Care) Vital Signs: Last Vital Signs Temp 98.5 F 08/31/24 12:47 Pulse 81 08/31/24 12:47 Resp 16 08/31/24 12:47 BP 128/65 08/31/24 12:47 Pulse Ox 96 08/31/24 12:47 Oxygen Delivery Method Room Air 08/31/24 12:47 BMI result Body Mass Index 26.1 Tobacco/Smoking Status: Tobacco use Status Tobacco use date assessed 08/31/24 08/31/24 12:51 Patient Tobacco Use Status Former Tobacco user 08/31/24 12:51 e-Cigarette/Vaping Use Never Used 08/31/24 12:51 Thrive Assessment: Date of Thrive Assessment Date Thrive assessed 08/17/24 08/31/24 12:51 Currently or been in a relationship where the following occur: No concerns rep orted Const Other: General: no acute distress and well developed Nutritional Appearance: well nourished Orientation/consciousness: patient oriented x3 HENMT Head: Yes normocephalic and Yes atraumatic Eyes General: appearance normal, both eyes and all related structures Pupils: Equal, round and reactive pupils present EOM: EOMs intact bilaterally Resp Effort & Inspection: normal respiratory effort Auscultation: clear to auscultation bilaterally Cardio Rate: regular rate Rhythm: regular rhythm Heart sounds: S1 normal heart sound present, S2 normal heart sound present, no gallops, no murmurs and no rubs GI Palpation (GI): No Abdominal aortic bruit present, Soft to palpation, nontender, No hepatosplenomegaly present and No Rebound tenderness present Auscultation: normal bowel sounds General: Yes no CVA tenderness Back/Spine/Pelvis Back: no CVA tenderness Cervical Spine: cervical ROM normal and No Cervical spine tenderness Thoracic/Lumbar Spine: thoraco-lumbar ROM normal, No pain with thoraco-lumbar ROM, No thoracic spinal tenderness and No lumbar spinal tenderness Extrem General: Yes normal to inspection, No edema and No calf tenderness Skin General: warm and dry. Normal skin color. Normal skin turgor Neuro General: patient oriented x3, gait normal and no focal neuro deficit Cranial nerves: Yes Equal, round and reactive pupils present Cognition (Neuro): normal cognition Gait exam (Neuro): Normal gait present Sensory Exam: No Sensory deficit (Neuro) Psych Appearance: grossly normal Affect: normal affect Attitude: cooperative Thought process: Normal thought process present Coding Level of Care Code Est Pt Level 3 (47752) Diagnoses Hypertension I10 Hypercholesterolemia E78.00 Assessment & Plan Assessment & Plan (1) Hypertension: Code(s): I10 - Essential (primary) hypertension Category: Medical Plan: Resting blood pressure is 120/70, within goal of less than 140/90. Continue current treatment regimen. Low-sodium diet encouraged. Follow-up in 1 month or sooner with symptoms or concerns. Verbalized understanding and agreed with treatment plan. (2) Hypercholesterolemia: Code(s): E78.00 - Pure hypercholesterolemia, unspecified Category: Medical Plan: Continue current treatment regimen. Advised to limit foods high in saturated fat and avoid foods high in trans fat. Routine exercise encouraged. Fast for 10-12 hours, may drink water, and perform lipid panel blood work 2-3 days before next visit. Follow-up in 1 month. Verbalized understanding and agreed with the plan Orders: Orders Lipid Panel 1 Month E78.00 - Pure hypercholesterolemia, unspecified
[2024-08-31 12:47] VITALS: BP 128/65; PULSE 81; RESP 16; TEMP 36.9; O2SAT 96; BMI 26.1
[2024-08-31 13:13] VITALS: BP 120/70
== END 2024-08-31 13:17 | disposition home or self-care (01) ==
LOC: HO.HMCFM 12:41
PROVIDERS: PCP Nurse Practitioner Family; Visit Provider Nurse Practitioner Family
DX: I10 Essential (primary) hypertension (principal); E78.00 Pure hypercholesterolemia, unspecified

== ENCOUNTER → 2024-08-31 12:40 | Outpatient (BNVA) | payer MEDICARE, SELFPAY | PROVIDERS: PCP Nurse Practitioner Family; Visit Provider Nurse Practitioner Family | DX: I10 Essential (primary) hypertension (principal); E78.00 Pure hypercholesterolemia, unspecified | CPT/HCPCS: 99212 ==

== ENCOUNTER 2024-10-02 10:17 | Outpatient (REF) | payer MEDICARE, SELFPAY ==
[2024-10-02 14:52] LABS: MANUAL DIFF FLAG NO
[2024-10-02 15:03] LABS: Basophils Percent Auto 0.6 % (0-2); Eosinophils Absolute Auto 0.1 X10*3/uL (0.0-0.4); Eosinophils Percent Auto 1.4 % (0-4); Hematocrit 37.3 % (37.0-47.0); Hemoglobin 12.1 g/dl (12.0-16.0); Imm Gran Abs Auto 0.02 X10*3/uL (0.00-0.03); Imm Gran Pct Auto 0.3 % (0.0-0.4); Lymphocytes Absolute Auto 1.7 X10*3/uL (1.2-4.9); Lymphocytes Percent Auto 23.7 % (20-40); Mean Corpuscular HGB Conc 32.4 g/dl (31.0-35.0); Mean Corpuscular Hemoglobin 32.3 pg (27.0-33.0); Mean Corpuscular Volume 99.5 fL (80.0-98.0); Mean Platelet Volume 10.4 fL (9.4-12.3); Monocytes Absolute Auto 0.6 X10*3/uL (0.1-1.2); Monocytes Percent Auto 8.9 % (2-11); Neutrophils Absolute Auto 4.5 x10*3/uL (2.0-8.3); Neutrophils Percent Auto 65.1 % (45-73); Platelet Count 328 X10*3/uL (160-400); Red Blood Count 3.75 X10*6/uL (4.20-5.50); Red Cell Distribution Width 13.4 % (11.0-16.0)
[2024-10-02 15:47] LABS: Erythrocyte Sedimentation Rate 7 MM/HR (0-20)
[2024-10-02 15:50] LABS: Parathyroid Hormone Intact 82.1 pg/mL (8.7-77.1)
[2024-10-02 16:12] LABS: Alanine Aminotransferase 20 U/L (0-31); Albumin Level 3.7 g/dL (3.5-5.0); Anion Gap 8 (12-20); Aspartate Amino Transferase 26 U/L (5-31); Bilirubin Total 0.4 mg/dL (0.0-1.0); Blood Urea Nitrogen 18 mg/dL (9-16); Calcium 9.1 mg/dL (8.4-10.2); Carbon Dioxide 27 mmol/L (22-29); Chloride 109 mmol/L (96-108); Cholesterol 221 mg/dL (<200); Estimated Glomerular Filt Rate > 60; Glucose Fasting 83 mg/dL (60-99); Glucose Random 83 mg/dL (60-115); HDL Cholesterol 72 mg/dL (>40); LDL Cholesterol Calculated 130 mg/dL (<100); Potassium 4.2 mmol/L (3.3-5.1); Sodium 140 mmol/L (135-145); Triglycerides 96 mg/dL (<150)
[2024-10-02 17:14] LABS: Alkaline Phosphatase 49 U/L (39-117)
== END 2024-10-02 10:18 | disposition home or self-care (01) ==
LOC: HO.WFDLDS 10:17
PROVIDERS: Referring Provider Student in an Organized Health Care Education/Training Program; Visit Provider Nurse Practitioner Family
DX: Z00.00 Encounter for general adult medical examination without abnormal findings (principal); M05.9 Rheumatoid arthritis with rheumatoid factor, unspecified; Z79.899 Other long term (current) drug therapy; E21.5 Disorder of parathyroid gland, unspecified; E78.00 Pure hypercholesterolemia, unspecified
CPT/HCPCS: 36415; 80053; 80061; 83970; 85025; 85027; 85652; 86140

== ENCOUNTER 2024-10-05 10:39 | Outpatient (AMB) | payer MEDICARE, SELFPAY ==
--- NOTE | 2024-10-05 10:42 | A.OFFPC_ITS ---
Vital Signs 10/05/24 10:45 10/05/24 11:59 Height 5 ft 4 in Weight 155 lb 4 oz BMI 26.6 BP 166/72 H 160/70 H Blood Pressure Location Lt brachial Lt brachial Position Sitting Sitting Respiration 16 Pulse 80 Pulse Source Pulse Oximeter Temp 97.7 F Temp Source Oral Pulse Oximetry (%) 98 Oxygen Delivery Method Room Air Intake Visit Reasons: 1 mos HTN, hypercholesterolemia Intake Note: patient here for 1 month follow up on HTN, hypercholesterolemia [employer] Administrator Required: No Is last menstrual period known: No Post menopausal: No Patient : No Allergies adalimumab [Humira] Allergy (Severe, Verified 10/05/24 11:27) rash Medication List - Last Reconciled 10/05/24 by Scarlet Jewell CNP leflunomide 20 mg (2 x 10 mg) PO DAILY 90 days multivitamin 1 tab PO DAILY valsartan 160 mg PO DAILY 30 days Tobacco use date assessed: 10/05/24 Fall risk assessment: No Falls in past year Last assessed Fall Risk: 10/05/24 Dental Screening Dental Screen Date: 10/05/24 Did you have a dental visit in the last 12 months?: Yes Did you have a dental problem in the last 6 months where you did not have access to dental care?: No Was dental information given to patient?: Patient has dentist HPI HPI Comments History of Present Illness Details 69-year-old female presents for hyperten geraldine and hyperlipidemia follow- up. She admits to taking losartan as prescribed without adverse reactions. She notes that she has been making healthy dietary choices and exercising routinely. She offers no complaints and denies acute symptoms at this time. [facility] Medical History Anxiety Surgical History History of cholecystectomy H/O left wrist surgery Family History Mother Heart attack High blood pressure Maternal Grandfather Heart attack Brother Alcohol abuse Social History Household Members: None Housing: Apartment Alcohol intake: former Patient Tobacco Use Status: Former Tobacco user e-Cigarette/Vaping Use: Never Used service: No Current occupational status: retired Current occupational exposures/hazards: No Cognitive needs: No Hearing needs: No Vision needs: Yes Questionnaire Thrive Questionnaire Date Thrive assessed: 08/17/24 I am a: Patient What is your living situation today?: I have a steady place to live Within the past 12 months, did the food you bought not last and you didn't have the money to get more?: Never true Within the past 12 months, did you worry whether your food would run out before you got money to buy more?: Never true Do you have trouble paying for medicines?: No Do you have trouble getting transportation to medical appointments?: No Do you have trouble paying your heating and electricity bill?: No Do you have trouble taking care of your child, family member or friend?: No Do you have trouble with day-to-day activities such as bathing, preparing meals, shopping, managing finances, etc.?: No Are you currently unemployed and looking for a job?: No Are you interested in more education?: No Please select the resources that you would like help with: None Currently or been in a relationship where the following occur: No concerns reported THRIVE Score: 0 SALLIE-7 AMB Questionnaire SALLIE-7 Date SALLIE - 7 assessed: 01/21/24 Source: Developed by Drs. Carlos Loyola, Alba Lee, Darian Green and colleagues, with an educational marcelo from [employer]. Review of Systems Const Details: Const Denies chills, Denies fatigue, Denies fever(s), Denies headache(s) and Denies weakness ENT Denies dizziness and Denies headache(s) Card Denies chest pain, Denies lightheadedness, Denies dyspnea and Denies other (Palpitations) Resp Denies cough, Denies dyspnea, Denies wheezing and Denies other ( shortness of breath) GI Denies abdominal pain, Denies melena, Denies hematochezia, Denies change in bowel habits, Denies dyspepsia and Denies nausea Denies hematuria and Denies dysuria Musc Denies abnormal gait, Denies myalgias, Denies arthralgias, Denies numbness and Denies tingling Skin/Breast Denies rash, Denies unusual bruising and Denies wounds Neuro Denies abnormal gait, Denies dizziness, Denies headache(s), Denies memory loss, Denies numbness, Denies Sensory deficit (Neuro), Denies tingling and Denies weakness Psych Denies anxiety, Denies depression, Denies memory loss Endo Denies cold intolerance, Denies fatigue, Denies heat intolerance, Denies polydipsia and Denies polyuria Aller/Immun Denies wheezing Physical exam (Primary Care) Vital Signs: Last Vital Signs Temp 97.7 F 10/05/24 10:45 Pulse 80 10/05/24 10:45 Resp 16 10/05/24 10:45 BP 166/72 H 10/05/24 10:45 Pulse Ox 98 10/05/24 10:45 Oxygen Delivery Method Room Air 10/05/24 10:45 BMI result Body Mass Index 26.6 Tobacco/Smoking Status: Tobacco use Status Tobacco use date assessed 10/05/24 10/05/24 10:52 Patient Tobacco Use Status Former Tobacco user 10/05/24 10:52 e-Cigarette/Vaping Use Never Used 10/05/24 10:52 Thrive Assessment: Date of Thrive Assessment Date Thrive assessed 08/17/24 10/05/24 10:52 Currently or been in a relationship where the following occur: No concerns reported Const Other: General: no acute distress and well developed Nutritional Appearance: well nourished Orientation/consciousness: patient oriented x3 HENMT Head: Yes normocephalic and Yes atraumatic Eyes General: appearance normal, both eyes and all related structures Pupils: Equal, round and reactive pupils present EOM: EOMs intact bilaterally Resp Effort & Inspection: normal respiratory effort Auscultation: clear to auscultation bilaterally Cardio Rate: regular rate Rhythm: regular rhythm Heart sounds: S1 normal heart sound present, S2 normal heart sound present, no gallops, no murmurs and no rubs GI Palpation (GI): No Abdominal aortic bruit present, Soft to palpation, nontender, No hepatosplenomegaly present and No Rebound tenderness present Auscultation: normal bowel sounds General: Yes no CVA tenderness Back/Spine/Pelvis Back: no CVA tenderness Cervical Spine: cervical ROM normal and No Cervical spine tenderness Thoracic/Lumbar Spine: thoraco-lumbar ROM normal, No pain with thoraco-lumbar ROM, No thoracic spinal tenderness and No lumbar spinal tenderness Extrem General: Yes normal to inspection, No edema and No calf tenderness Skin General: warm and dry. Normal skin color. Normal skin turgor Neuro General: patient oriented x3, gait normal and no focal neuro deficit Cranial nerves: Yes Equal, round and reactive pupils present Cognition (Neuro): normal cognition Gait exam (Neuro): Normal gait present Sensory Exam: No Sensory deficit (Neuro) Psych Appearance: grossly normal Affect: normal affect Attitude: cooperative Thought process: Normal thought process present Coding Level of Care Code Est Pt Level 4 (98644) Diagnoses Hypertension I10 Hypercholesterolemia E78.00 Elevated PTHrP level R79.89 Assessment & Plan Assessment & Plan (1) Hypertension: Code(s): I10 - Essential (primary) hypertension Category: Medical Plan: Resting blood pressure is 160/70, above goal of less than 140/90. She does not want her valsartan to be increased to 320 mg daily as recommended and request an increase to 200 mg daily. Valsartan increased to 200 mg daily; advised to take as prescribed. Routine exercise and low-sodium diet encouraged. Follow-up in 1 month or sooner with symptoms or concerns. Verbalized understanding and agreed with the treatment plan. (2) Hypercholesterolemia: Code(s): E78.00 - Pure hypercholesterolemia, unspecified Category: Medical Plan: Recent total cholesterol and LDL are mildly elevated, 121 and 130 respectively, no change from previous levels. Triglycerides and HDL levels are normal. Declines medication treatment at this time and notes she will continue to make healthy lifestyle choices. Advised to limit foods high in saturated fat and avoid foods high in trans fat. Routine exercise encouraged. Will monitor lipid panel level annually or if presents with related symptoms or concerns. Verbalized understanding and agreed with treatment plan. (3) Elevated PTHrP level: Code(s): R79.89 - Other specified abnormal findings of blood chemistry Category: Medical Plan: Recent PTH level is slightly elevated, 82.1, previous level was 144.3. Labs otherwise unremarkable. Equivocal. She does not want this to be monitored or have further workup. Will recheck PTH level annually or if present with related symptoms or concerns. Verbalized understanding and agreed with the plan. Medications: New valsartan Take with valsartan 160 mg to equal 200 mg daily 40 mg PO DAILY 30 days 30 tabs 3RF
[2024-10-05 10:45] VITALS: BP 166/72; PULSE 80; RESP 16; TEMP 36.5; O2SAT 98; BMI 26.6
[2024-10-05 11:59] VITALS: BP 160/70
== END 2024-10-05 11:46 | disposition home or self-care (01) ==
LOC: HO.HMCFM 10:40
PROVIDERS: PCP Nurse Practitioner Family; Visit Provider Nurse Practitioner Family
DX: I10 Essential (primary) hypertension (principal); E78.00 Pure hypercholesterolemia, unspecified; R79.89 Other specified abnormal findings of blood chemistry

== ENCOUNTER → 2024-10-05 10:39 | Outpatient (BNVA) | payer MEDICARE, SELFPAY | PROVIDERS: PCP Nurse Practitioner Family; Visit Provider Nurse Practitioner Family | DX: I10 Essential (primary) hypertension (principal); E78.00 Pure hypercholesterolemia, unspecified; R79.89 Other specified abnormal findings of blood chemistry | CPT/HCPCS: 99212 ==

== ENCOUNTER 2024-11-09 10:41 | Outpatient (AMB) | payer MEDICARE, SELFPAY ==
--- NOTE | 2024-11-09 10:44 | MHC.PC.OV ---
Vital Signs 11/09/24 10:50 Height 5 ft 4 in Weight 152 lb 8 oz BMI 26.2 BP 139/81 Blood Pressure Location Rt brachial Position Sitting Respiration 16 Pulse 84 Pulse Source Pulse Oximeter Temp 97.6 F Temp Source Oral Pulse Oximetry (%) 96 Oxygen Delivery Method Room Air Intake Visit Reasons: 1 mos HTN Intake Note: patient here for 1 month HTN Database Management Specialist Required: No Is last menstrual period known: No Post menopausal: No Patient : No Allergies adalimumab (Humira) Allergy (Severe, Verified 11/09/24 11:09) rash Medication List - Last Reconciled 11/09/24 by Scarlet Jewell CNP leflunomide 20 mg (2 x 10 mg) PO DAILY 90 days multivitamin 1 tab PO DAILY valsartan 40 mg PO DAILY 30 days valsartan 160 mg PO DAILY 30 days Tobacco use date assessed: 11/09/24 Fall risk assessment: No Falls in past year Last assessed Fall Risk: 11/09/24 Dental Screening Dental Screen Date: 11/09/24 Did you have a dental visit in the last 12 months?: Yes Did you have a dental problem in the last 6 months where you did not have access to dental care?: No Was dental information given to patient?: Patient has dentist HPI HPI Comments History of Present Illness Details 69-year-old female presents for hypertension follow-up. She admits to taking her medications as prescribed without adverse reactions. She offers no complaints and denies acute symptoms at this time. [facility] Medical History Anxiety Surgical History History of cholecystectomy H/O left wrist surgery Family History Mother Heart attack High blood pressure Maternal Grandfather Heart attack Brother Alcohol abuse Social History Household Members: None Housing: Apartment Alcohol intake: former Patient Tobacco Use Status: Former Tobacco user e-Cigarette/Vaping Use: Never Used Second Hand Smoke Exposure: No Patient : No service: No Current occupational status: retired Current occupational exposures/hazards: No Cognitive needs: No Hearing needs: No Vision needs: Yes Questionnaire Thrive Questionnaire Date Thrive assessed: 08/17/24 I am a: Patient What is your living situation today?: I have a steady place to live Within the past 12 months, did the food you bought not last and you didn't have the money to get more?: Never true Within the past 12 months, did you worry whether your food would run out before you got money to buy more?: Never true Do you have trouble paying for medicines?: No Do you have trouble getting transportation to medical appointments?: No Do you have trouble paying your heating and electricity bill?: No Do you have trouble taking care of your child, family member or friend?: No Do you have trouble with day-to-day activities such as bathing, preparing meals, shopping, managing finances, etc.?: No Are you currently unemployed and looking for a job?: No Are you interested in more education?: No Please select the resources that you would like help with: None Currently or been in a relationship where the following occur: No concerns reported THRIVE Score: 0 SALLIE-7 AMB Questionnaire SALLIE-7 Date SALLIE - 7 assessed: 01/21/24 Source: Developed by Drs. Carlos Loyola, Alba Lee, Darian Green and colleagues, with an educational marcelo from [employer]. Review of Systems Const Details: Const Denies chills, Denies fatigue, Denies fever(s), Denies headache(s) and Denies weakness ENT Denies dizziness and Denies headache(s) Card Denies chest pain, Denies lightheadedness, Denies dyspnea and Denies other (Palpitations) Resp Denies cough, Denies dyspnea, Denies wheezing and Denies other ( shortness of breath) GI Denies abdominal pain, Denies melena, Denies hematochezia, Denies change in bowel habits, Denies dyspepsia and Denies nausea Denies hematuria and Denies dysuria Musc Denies abnormal gait, Denies myalgias, Denies arthralgias, Denies numbness and Denies tingling Skin/Breast Denies rash, Denies unusual bruising and Denies wounds Neuro Denies abnormal gait, Denies dizziness, Denies headache(s), Denies memory loss, Denies numbness, Denies Sensory deficit (Neuro), Denies tingling and Denies weakness Psych Denies anxiety, Denies depression, Denies memory loss Endo Denies cold intolerance, Denies fatigue, Denies heat intolerance, Denies polydipsia and Denies polyuria Aller/Immun Denies wheezing Physical exam (Primary Care) Vital Signs: Last Vital Signs Temp 97.6 F 11/09/24 10:50 Pulse 84 11/09/24 10:50 Resp 16 11/09/24 10:50 BP 139/81 11/09/24 10:50 Pulse Ox 96 11/09/24 10:50 Oxygen Delivery Method Room Air 11/09/24 10:50 BMI result Body Mass Index 26.2 Tobacco/Smoking Status: Tobacco use Status Tobacco use date assessed 11/09/24 11/09/24 10:54 Patient Tobacco Use Status Former Tobacco user 11/09/24 10:46 e-Cigarette/Vaping Use Never Used 11/09/24 10:46 Thrive Assessment: Date of Thrive Assessment Date Thrive assessed 08/17/24 11/09/24 10:46 Currently or been in a relationship where the following occur: No concerns reported Const Other: General: no acute distress and well developed Nutritional Appearance: well nourished Orientation/consciousness: patient oriented x3 HENMT Head: Yes normocephalic and Yes atraumatic Eyes General: appearance normal, both eyes and all related structures Pupils: Equal, round and reactive pupils present EOM: EOMs intact bilaterally Resp Effort & Inspection: normal respiratory effort Auscultation: clear to auscultation bilaterally Cardio Rate: regular rate Rhythm: regular rhythm Heart sounds: S1 normal heart sound present, S2 normal heart sound present, no gallops, no murmurs and no rubs GI Palpation (GI): No Abdominal aortic bruit present, Soft to palpation, nontender, No hepatosplenomegaly present and No Rebound tenderness present Auscultation: normal bowel sounds General: Yes no CVA tenderness Back/Spine/Pelvis Back: no CVA tenderness Cervical Spine: cervical ROM normal and No Cervical spine tenderness Thoracic/Lumbar Spine: thoraco-lumbar ROM normal, No pain with thoraco-lumbar ROM, No thoracic spinal tenderness and No lumbar spinal tenderness Extrem General: Yes normal to inspection, No edema and No calf tenderness Skin General: warm and dry. Normal skin color. Normal skin turgor Neuro General: patient oriented x3, gait normal and no focal neuro deficit Cranial nerves: Yes Equal, round and reactive pupils present Cognition (Neuro): normal cognition Gait exam (Neuro): Normal gait present Sensory Exam: No Sensory deficit (Neuro) Psych Appearance: grossly normal Affect: normal affect Attitude: cooperative Thought process: Normal thought process present Coding Level of Care Code Est Pt Level 3 (85994) Diagnoses Hypertension I10 Assessment & Plan Assessment & Plan (1) Hypertension: Code(s): I10 - Essential (primary) hypertension Category: Medical Plan: Resting blood pressure is 139/81, within goal of less than 140/90. Continue current treatment regimen. Low-sodium diet encouraged. Follow-up for hypertension and an extended physical exam after 01/20/2025. Return sooner with symptoms or concerns. Verbalized understanding and agreed with the treatment plan.
[2024-11-09 10:50] VITALS: BP 139/81; PULSE 84; RESP 16; TEMP 36.4; O2SAT 96; BMI 26.2
== END 2024-11-09 11:25 | disposition home or self-care (01) ==
LOC: HO.HMCFM 10:42
PROVIDERS: PCP Nurse Practitioner Family; Visit Provider Nurse Practitioner Family
DX: I10 Essential (primary) hypertension (principal)

== ENCOUNTER → 2024-11-09 10:41 | Outpatient (BNVA) | payer MEDICARE, SELFPAY | PROVIDERS: PCP Nurse Practitioner Family; Visit Provider Nurse Practitioner Family | DX: I10 Essential (primary) hypertension (principal) | CPT/HCPCS: 99212 ==

== ENCOUNTER 2025-01-21 09:21 | Outpatient (REF) | payer MEDICARE, SELFPAY ==
[2025-01-21 11:38] LABS: MANUAL DIFF FLAG NO
[2025-01-21 11:39] LABS: Hematocrit 38.2 % (37.0-47.0); Hemoglobin 12.8 g/dl (12.0-16.0); Imm Gran Abs Auto 0.03 X10*3/uL (0.00-0.03); Imm Gran Pct Auto 0.5 % (0.0-0.4); Lymphocytes Absolute Auto 1.7 X10*3/uL (1.2-4.9); Mean Corpuscular HGB Conc 33.5 g/dl (31.0-35.0); Mean Corpuscular Hemoglobin 32.7 pg (27.0-33.0); Mean Corpuscular Volume 97.7 fL (80.0-98.0); NRBC Abs Auto 0.000 X10*3/uL (0.0-0.012); NRBC Pct Auto 0.0 /100WBC (0.0-0.2); Platelet Count 388 X10*3/uL (160-400); Red Blood Count 3.91 X10*6/uL (4.20-5.50); White Blood Count 6.5 X10*3/uL (4.8-10.8)
[2025-01-21 12:00] LABS: Alanine Aminotransferase 17 U/L (0-31); Albumin Level 4.0 g/dL (3.5-5.0); Alkaline Phosphatase 61 U/L (39-117); Anion Gap 12 (12-20); Aspartate Amino Transferase 23 U/L (5-31); Blood Urea Nitrogen 11 mg/dL (9-16); Calcium 8.8 mg/dL (8.4-10.2); Carbon Dioxide 26 mmol/L (22-29); Chloride 110 mmol/L (96-108); Estimated Glomerular Filt Rate > 60; Potassium 4.3 mmol/L (3.3-5.1); Sodium 144 mmol/L (135-145); Total Protein 6.6 g/dL (6.5-8.0)
== END 2025-01-21 09:22 | disposition home or self-care (01) ==
LOC: HO.WFDLDS 09:21
PROVIDERS: Referring Provider Student in an Organized Health Care Education/Training Program; Visit Provider Nurse Practitioner Family
DX: M05.9 Rheumatoid arthritis with rheumatoid factor, unspecified (principal); Z79.899 Other long term (current) drug therapy
CPT/HCPCS: 36415; 80053; 85025; 85652; 86140

== ENCOUNTER 2025-01-25 09:56 | Outpatient (AMB) | payer MEDICARE, SELFPAY ==
--- NOTE | 2025-01-25 09:59 | A.OFFPC_ITS ---
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 Is last menstrual period known: No Post menopausal: No Patient : No Allergies adalimumab (Humira) Allergy (Severe, Verified 01/25/25 10:19) rash Medication List - Last Reconciled 01/25/25 by Scarlet Jewell CNP leflunomide 20 mg (2 x 10 mg) PO DAILY 90 days multivitamin 1 tab PO DAILY valsartan 160 mg PO DAILY 30 days valsartan 40 mg PO DAILY 30 days Tobacco use date assessed: 01/25/25 Fall risk assessment: No Falls in past year Last assessed Fall Risk: 01/25/25 Dental Screening Dental Screen Date: 01/25/25 Did you have a dental visit in the last 12 months?: Yes Did you have a dental problem in the last 6 months where you did not have access to dental care?: No Was dental information given to patient?: Patient has dentist HPI HPI Comments History of Present Illness Details 69-year-old female presents for an exten ded physical exam. She admits to taking her medications as prescribed without adverse reactions. 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 Does not vape. Does not drink alcohol, Denies recreational drug use - Has been making healthy dietary choice s. Exercises routinely. Generally sleep well Health maintenance - Last eye exam was a year ago with Idalia miller. She will follow-up for an eye exam in 05/2024 - Last dental visit was 8 months ago - Last tetanus vaccine was more than 30 years ago; declines Tdap vaccine today - Has not been vaccinated for the flu ; declines vaccination - She is vaccinated for pneumonia - She has never been vaccinated for gutiérrez gles; declines shingles vaccines - She never had a pap smear test and [place] s not want a Pap smear test - Last mammogram in 03/26/2024: Negativ e. Mammogram ordered - Last colonoscopy was at [facility] 3-4 years ago: normal. She does not want another colonoscopy or a Cologuard test - Last dexa scan was in 03/26/2024: Ost eoporosis. Has an appointment scheduled with [facility] Medical History Anxiety Surgical History History of cholecystectomy H/O left wrist surgery Family History Mother Heart attack High blood pressure Maternal Grandfather Heart attack Brother Alcohol abuse Social History Household Members: None Housing: Apartment Alcohol intake: former Patient Tobacco Use Status: Former Tobacco user e-Cigarette/Vaping Use: Never Used Second Hand Smoke Exposure: No service: No Current occupational status: retired Current occupational exposures/hazards: No Cognitive needs: No Hearing needs: No Vision needs: Yes Questionnaire PHQ-9 Over the last 2 weeks, how often have you been bothered by any of the following problems? 1. Little interest or pleasure in doing things: not at all 2. Feeling down, depressed, or hopeless: not at all 3. Trouble falling or staying asleep, or sleeping too much: more than half the days 4. Feeling tired or having little energy: several days 5. Poor appetite or overeating: not at all 6. Feeling bad about yourself - or that you are a failure or have let yourself or your family down: not at all 7. Trouble concentrating on things, such as reading the newspaper or watching television: not at all 8. Moving or speaking so slowly that other people could have noticed. Or the opposite - being so fidgety or restless that you have been moving around a lot more than usual: not at all 9. Thoughts that you would be better off or of hurting yourself in some way: not at all Total score: 3 Depression Screening Interpretation: Negative Depression Screening Done: Yes 76815 - PHQ-9 Billing: Yes Source: Developed by Drs. Carlos Loyola, Darian Estrada and colleagues, with an educational marcelo from [employer]. Thrive Questionnaire Date Thrive assessed: 01/25/25 I am a: Patient What is your living situation today?: I have a steady place to live Within the past 12 months, did the food you bought not last and you didn't have the money to get more?: Never true Within the past 12 months, did you worry whether your food would run out before you got money to buy more?: Never true Do you have trouble paying for medicines?: No Do you have trouble getting transportation to medical appointments?: No Do you have trouble paying your heating and electricity bill?: No Do you have trouble taking care of your child, family member or friend?: No Do you have trouble with day-to-day activities such as bathing, preparing meals, shopping, managing finances, etc.?: No Are you currently unemployed and looking for a job?: No Are you interested in more education?: No Please select the resources that you would like help with: None Currently or been in a relationship where the following occur: No concerns reported THRIVE Score: 0 AUDIT C Alcohol Use Questionnaire (AUDIT-C) 1. How often do you have a drink containing alcohol?: Never 3. How often do you have six or more drinks on one occasion?: Never Total Score: 0 Score Reviewed/Action Taken: Yes SALLIE-7 AMB Questionnaire SALLIE-7 Date SALLIE - 7 assessed: 01/25/25 Feeling nervous, anxious, or on edge: 0 = Not at all Not being able to stop or control worryin = Not at all Worrying too much about different things: 1 = Several days Trouble relaxin = Several days Being so restless that it is hard to sit still: 0 = Not at all Becoming easily annoyed or irritable: 1 = Several days Feeling afraid as if something awful might happen: 0 = Not at all Total SALLIE-7 score (0-4 normal; 5-9 mild; 10-14 moderate; 15-21 severe): 3 Source: Developed by Drs. Carlos Loyola, Darian Estrada and colleagues, with an educational marcelo from [employer]. SALLIE-7 Assessment Billing SALLIE-7 Assessment Tool: SALLIE-7 Assessment 51518 Review of Systems Const Details: Denies chills, Denies fatigue, Denies fever(s), Denies headache(s) and Denies weakness HEENT Denies change in vision, Denies dizziness, Denies headache(s), Denies hearing loss, Denies nasal congestion, Denies sinus pain, Denies sinus pressure and Denies sore throat Card Denies chest pain, Denies lightheadedness, Denies dyspnea and Denies other (palpitations) Resp Denies cough, Denies dyspnea and Denies wheezing GI Denies abdominal pain, Denies melena, Denies hematochezia, Denies change in bowel habits, Denies dyspepsia and Denies nausea Denies hematuria and Denies dysuria Musc Denies abnormal gait, Denies myalgias, Denies arthralgias, Denies numbness and Denies tingling Skin/Breast Denies rash, Denies unusual bruising and Denies wounds Neuro Denies abnormal gait, Denies dizziness, Denies headache(s), Denies memory loss, Denies numbness, Denies Sensory deficit (Neuro), Denies tingling and Denies weakness Psych Denies anxiety, Denies depression and Denies memory loss Endo Denies cold intolerance, Denies fatigue, Denies heat intolerance, Denies polydipsia and Denies polyuria Jason/Lymph Denies easy bleeding and Denies easy bruising Aller/Immun Denies wheezing Physical exam (Primary Care) Vital Signs: Last Vital Signs Temp 98.2 F 01/25/25 10:06 Pulse 84 01/25/25 10:29 Resp 16 01/25/25 10:06 BP 160/80 H 01/25/25 10:29 Pulse Ox 95 01/25/25 10:06 Oxygen Delivery Method Room Air 01/25/25 10:06 BMI result Body Mass Index 25.6 Tobacco/Smoking Status: Tobacco use Status Tobacco use date assessed 01/25/25 01/25/25 10:13 Patient Tobacco Use Status Former Tobacco user 01/25/25 10:01 e-Cigarette/Vaping Use Never Used 01/25/25 10:01 PHQ-9: PHQ-9 Score PHQ-9: Total score 3 01/25/25 10:21 Depression Screening Interpretation: Negative Thrive Assessment: Date of Thrive Assessment Date Thrive assessed 01/25/25 01/25/25 10:13 Currently or been in a relationship where the following occur: No concerns reported Const Other: General: no acute distress, well developed, alert and awake Nutritional Appearance: well nourished Orientation/consciousness: patient oriented x3 [facility] Head: Yes normocephalic and Yes atraumatic Ears: hearing grossly normal bilaterally and TM's normal bilaterally General nose exam: Normal external nose present and Normal nares present Mouth: Normal oral and palatal mucosa present and moist mucous membranes Teeth and gingiva: dentition normal Throat: Yes oropharynx normal Eyes Pupils: Equal, round and reactive pupils present and Pupil accommodation reflex normal EOM: EOMs intact bilaterally Neck Neck: Yes normal visual inspection, Yes no lymphadenopathy and Yes trachea midline Thyroid: Thyroid normal Carotids: no bruits Lymphatic: no lymphadenopathy noted Chest Chest palpation & inspection: normal inspection of the chest Resp Effort & Inspection: normal respiratory effort Auscultation: clear to auscultation bilaterally Cardio Rate: regular rate Rhythm: regular rhythm Heart sounds: S1 normal heart sound present, S2 normal heart sound present, no gallops, no murmurs and no rubs Bruits: no abdominal aortic bruits and no carotid bruits GI Palpation (GI): No Abdominal aortic bruit present, Soft to palpation, nontender, No hepatosplenomegaly present and No Rebound tenderness present Auscultation: normal bowel sounds General: Yes no CVA tenderness Back/Spine/Pelvis Back: no CVA tenderness Cervical Spine: cervical ROM normal and No Cervical spine tenderness Thoracic/Lumbar Spine: thoraco-lumbar ROM normal, No pain with thoraco-lumbar ROM, No thoracic spinal tenderness and No lumbar spinal tenderness Skin General: warm and dry. Normal skin color. Normal skin turgor Lesions: no lesions Rashes: no rashes Trauma: no lacerations or abrasions Wounds: no wounds Nails: normal Neuro General: patient oriented x3, gait normal and CN's II-XI intact bilaterally Cranial nerves: Yes Equal, round and reactive pupils present Cognition (Neuro): normal cognition Gait exam (Neuro): Normal gait present Motor exam (neuro): 5/5 motor strength present throughout Sensory Exam: No Sensory deficit (Neuro) Deep tendon reflexes (DTR's): Right patellar reflex intensity grade: 2+ and Left patellar reflex intensity grade: 2+ Extrem General: Yes normal to inspection, No edema and No calf tenderness Psych Appearance: grossly normal Affect: normal affect Attitude: cooperative Thought process: Normal thought process present Coding Level of Care Code Est Pt Level 3 (32674) Est Pt Prev Care >65y(87838) Diagnoses Normal physical examination, routine Z00.00 Hypertension I10 Additional Codes SALLIE-7 Assessment Billing - SALLIE-7 Assessment Tool: SALLIE-7 Assessment 63350 ([id number]) PHQ-9 - 15302 - PHQ-9 Billing: Yes ([id number]) Assessment & Plan Assessment & Plan (1) Normal physical examination, routine: Code(s): Z00.00 - Encounter for general adult medical examination without abnormal findings Category: Medical Plan: No significant functional limitation noted. Continue current treatment regimen. Healthy diet and routine exercise encouraged. Perform fasting lipid panel blood work as planned. Verbalized understanding and agreed with the plan. (2) Hypertension: Code(s): I10 - Essential (primary) hypertension Category: Medical Plan: Resting blood pressure is 160/80, above goal of less than 140/90. She notes that her blood pressure is elevated because she is excited to pay her bills today. Declines changes to her blood pressure regimen at this time. She notes that she would monitor blood pressure and follow-up in 3 months instead of 2-4 weeks as recommended. Encouraged to take her medications as prescribed. Low-sodium diet encouraged. She will follow-up in 3 months. Verbalized understanding and agreed with the plan. Orders: Orders Microalbumin, Random (w Creat) 01/25/25 Z00.00 - Encounter for general adult medical examination without abnormal findings UA CC w/rflx Micro + Cult 01/25/25 Z00.00 - Encounter for general adult medical examination without abnormal findings MM screening mammo BI 01/25/25 Z12.31 - Encounter for screening mammogram for malignant neoplasm of breast
[2025-01-25 10:06] VITALS: BP 168/86; PULSE 99; RESP 16; TEMP 36.8; O2SAT 95; BMI 25.6
[2025-01-25 10:29] VITALS: BP 160/80; PULSE 84
== END 2025-01-25 10:45 | disposition home or self-care (01) ==
LOC: HO.HMCFM 09:57
PROVIDERS: PCP Nurse Practitioner Family; Visit Provider Nurse Practitioner Family
DX: Z00.00 Encounter for general adult medical examination without abnormal findings (principal); I10 Essential (primary) hypertension

== ENCOUNTER → 2025-01-25 09:56 | Outpatient (BNVA) | payer MEDICARE, SELFPAY | PROVIDERS: PCP Nurse Practitioner Family; Visit Provider Nurse Practitioner Family | DX: Z00.00 Encounter for general adult medical examination without abnormal findings (principal); I10 Essential (primary) hypertension; M81.0 Age-related osteoporosis without current pathological fracture; M19.042 Primary osteoarthritis, left hand; M19.041 Primary osteoarthritis, right hand; M06.9 Rheumatoid arthritis, unspecified; Z87.891 Personal history of nicotine dependence | CPT/HCPCS: 96127; 99212; 99397 ==

== ENCOUNTER 2025-01-28 09:32 | Outpatient (REF) | payer MEDICARE, SELFPAY ==
[2025-01-28 11:43] LABS: Cholesterol 243 mg/dL (<200); HDL Cholesterol 74 mg/dL (>40); Triglycerides 81 mg/dL (<150)
[2025-01-28 15:09] LABS: Microalbum/Creatinine Ratio Ur 10.9 ug/mg cr (<30)
[2025-01-28 15:36] LABS: Appearance Urine Clear; Glucose Urine UA Negative (Negative); PH 5.0 (5.0-9.0); Specific Gravity - Urine 1.015 (1.005-1.025); UMIC TRIGGER UACC YES
[2025-01-28 15:42] LABS: UACC Culture Trigger YES
== END 2025-01-28 09:33 | disposition home or self-care (01) ==
LOC: HO.WFDLDS 09:32
PROVIDERS: Visit Provider Nurse Practitioner Family
DX: Z00.00 Encounter for general adult medical examination without abnormal findings (principal); Z13.6 Encounter for screening for cardiovascular disorders
CPT/HCPCS: 36415; 80061; 81001; 81003; 82043; 82570; 87086

== ENCOUNTER 2025-03-05 10:53 | Outpatient (AMB) | payer MEDICARE, SELFPAY ==
--- NOTE | 2025-03-05 11:00 | A.OFFPC_ITS ---
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: No Is last menstrual period known: No Post menopausal: No Patient : No Allergies adalimumab (Humira) Allergy (Severe, Verified 03/05/25 11:51) rash Medication List - Last Reconciled 03/05/25 by Scarlet Jewell CNP azithromycin (Zithromax Z-Andry) For 250 mg dose pack: take 500 mg today (day 1), then 250 mg for 4 days (days 2-5) PO cetirizine 10 mg PO DAILY 30 days fluticasone propionate 50 mcg/actuation (Flonase Allergy Relief) 2 sprays intranasal DAILY leflunomide 20 mg (2 x 10 mg) PO DAILY 90 days multivitamin 1 tab PO DAILY valsartan 160 mg PO DAILY 30 days valsartan 40 mg PO DAILY 30 days Tobacco use date assessed: 03/05/25 Fall risk assessment: No Falls in past year Last assessed Fall Risk: 03/05/25 Dental Screening Dental Screen Date: 03/05/25 Did you have a dental visit in the last 12 months?: Yes Did you have a dental problem in the last 6 months where you did not have access to dental care?: No Was dental information given to patient?: Patient has dentist HPI HPI Comments History of Present Illness Details 69-year-old female presents with complai nts of intermittent sore throat, and persistent head and chest congestion, difficulty with inhalation, and bringing up phlegm (never looked at the color) for the past 7 weeks. She denies headache, cough, or chest pain. She denies fever, chills, body aches, fatigue, or weakness. She denies known sick contacts. She has been taking multiple otc regimen including NyQuil and saline rinse with minimal temporary relief. Her head congestion has been persistent and the phelgm from her lungs have lessened. She denies sore throat at times. [facility] Medical History Anxiety Surgical History History of cholecystectomy H/O left wrist surgery Family History Mother Heart attack High blood pressure Maternal Grandfather Heart attack Brother Alcohol abuse Social History Household Members: None Housing: Apartment Alcohol intake: former Patient Tobacco Use Status: Former Tobacco user e-Cigarette/Vaping Use: Never Used Second Hand Smoke Exposure: No Patient : No service: No Current occupational status: retired Current occupational exposures/hazards: No Cognitive needs: No Hearing needs: No Vision needs: Yes Questionnaire Thrive Questionnaire Date Thrive assessed: 08/17/24 I am a: Patient What is your living situation today?: I have a steady place to live Within the past 12 months, did the food you bought not last and you didn't have the money to get more?: Never true Within the past 12 months, did you worry whether your food would run out before you got money to buy more?: Never true Do you have trouble paying for medicines?: No Do you have trouble getting transportation to medical appointments?: No Do you have trouble paying your heating and electricity bill?: No Do you have trouble taking care of your child, family member or friend?: No Do you have trouble with day-to-day activities such as bathing, preparing meals, shopping, managing finances, etc.?: No Are you currently unemployed and looking for a job?: No Are you interested in more education?: No Please select the resources that you would like help with: None Currently or been in a relationship where the following occur: No concerns reported THRIVE Score: 0 SALLIE-7 AMB Questionnaire SALLIE-7 Date SALLIE - 7 assessed: 01/25/25 Source: Developed by Drs. Carlos Loyola, Alba Lee, Darian Green and colleagues, with an educational marcelo from [employer]. Review of Systems Const Details: Const Denies chills, Denies fatigue, Denies fever(s), Denies headache(s) and Denies weakness ENT Reports as per HPI Card Denies chest pain, Denies lightheadedness, Denies dyspnea and Denies other (Palpitations) Resp Denies cough, Denies dyspnea, Denies wheezing and Denies other ( shortness of breath) GI Denies abdominal pain, Denies melena, Denies hematochezia, Denies change in bowel habits, Denies dyspepsia and Denies nausea Denies hematuria and Denies dysuria Musc Denies abnormal gait, Denies myalgias, Denies arthralgias, Denies numbness and Denies tingling Skin/Breast Denies rash, Denies unusual bruising and Denies wounds Neuro Denies abnormal gait, Denies dizziness, Denies headache(s), Denies memory loss, Denies numbness, Denies Sensory deficit (Neuro), Denies tingling and Denies weakness Psych Denies anxiety, Denies depression, Denies memory loss Endo Denies cold intolerance, Denies fatigue, Denies heat intolerance, Denies polydipsia and Denies polyuria Aller/Immun Denies wheezing Physical exam (Primary Care) Vital Signs: Last Vital Signs Temp 97.4 F 03/05/25 11:07 Pulse 86 03/05/25 11:07 Resp 16 03/05/25 11:07 BP 188/87 H 03/05/25 11:07 Pulse Ox 96 03/05/25 11:07 Oxygen Delivery Method Room Air 03/05/25 11:07 BMI result Body Mass Index 26.9 Tobacco/Smoking Status: Tobacco use Status Tobacco use date assessed 03/05/25 03/05/25 11:10 Patient Tobacco Use Status Former Tobacco user 03/05/25 11:10 e-Cigarette/Vaping Use Never Used 03/05/25 11:10 Thrive Assessment: Date of Thrive Assessment Date Thrive assessed 08/17/24 03/05/25 11:10 Currently or been in a relationship where the following occur: No concerns reported Const Other: General: no acute distress and well developed Nutritional Appearance: well nourished Orientation/consciousness: patient oriented x3 HENMT Head is normocephalic Bilateral ear canal and TM are normal Nasal turbinates with mild edema and erythema Oropharynx are pink and moist Sinuses are nontender with palpation No auricular or cervical lymphadenopathy Eyes General: appearance normal, both eyes and all related structures Pupils: Equal, round and reactive pupils present EOM: EOMs intact bilaterally Resp Effort & Inspection: normal respiratory effort Auscultation: clear to auscultation but slightly diminished bilaterally Cardio Rate: regular rate Rhythm: regular rhythm Heart sounds: S1 normal heart sound present, S2 normal heart sound present, no gallops, no murmurs and no rubs GI Palpation (GI): No Abdominal aortic bruit present, Soft to palpation, nontender, No hepatosplenomegaly present and No Rebound tenderness present Auscultation: normal bowel sounds General: Yes no CVA tenderness Back/Spine/Pelvis Back: no CVA tenderness Cervical Spine: cervical ROM normal and No Cervical spine tenderness Thoracic/Lumbar Spine: thoraco-lumbar ROM normal, No pain with thoraco-lumbar ROM, No thoracic spinal tenderness and No lumbar spinal tenderness Extrem General: Yes normal to inspection, No edema and No calf tenderness Skin General: warm and dry. Normal skin color. Normal skin turgor Neuro General: patient oriented x3, gait normal and no focal neuro deficit Cranial nerves: Yes Equal, round and reactive pupils present Cognition (Neuro): normal cognition Gait exam (Neuro): Normal gait present Sensory Exam: No Sensory deficit (Neuro) Psych Appearance: grossly normal Affect: normal affect Attitude: cooperative Thought process: Normal thought process present Coding Level of Care Code Est Pt Level 4 (48219) Diagnoses Upper respiratory symptom R09.89 Hypertension I10 Assessment & Plan Assessment & Plan (1) Upper respiratory symptom: Code(s): R09.89 - Other specified symptoms and signs involving the circulatory and respiratory systems Category: Medical Plan: Lung sounds clear to auscultation but slightly diminished bilaterally. Nasal turbinates with mild erythema and edema. Likely allergies. No current evidence of bacterial or viral infection. Zyrtec and Flonase as prescribed. Z-Andry for potential bacteria sinus infection. May take Tylenol ibuprofen for pain, fever, or discomfort. Chest x-ray ordered to rule out pneumonia. Nasal swab collected and will be sent to the lab to test for COVID/flu/RSV. Adequate hydration and rest encouraged. Follow-up with worsening or new symptoms. Verbalized understanding and agreed with the plan. (2) Hypertension: Code(s): I10 - Essential (primary) hypertension Category: Medical Plan: Resting blood pressure is 188/87, above goal of less than 140/90. Likely due to current illness. Continue current treatment regimen. Low-sodium diet encouraged. Follow-up in 1 week or sooner with symptoms or concerns. Verbalized understanding and agreed with the plan. Orders: Orders XR chest 2V Today R09.89 - Other specified symptoms and signs involving the circulatory and respiratory systems SARS-CoV2/FLU/RSV Today R09.89 - Other specified symptoms and signs involving the circulatory and respiratory systems Medications: New cetirizine 10 mg PO DAILY 30 tabs 0RF 30 days fluticasone propionate 50 mcg/actuation (Flonase Allergy Relief) Administer into each nostril. Two actuations in each nostril daily x1 week; and then 1-2 to actuations in each nostril daily 2 sprays intranasal DAILY 16 grams 2RF azithromycin (Zithromax Z-Andry) For 250 mg dose pack: take 500 mg today (day 1), then 250 mg for 4 days (days 2-5) PO 6 tabs 0RF
[2025-03-05 11:07] VITALS: BP 188/87; PULSE 86; RESP 16; TEMP 36.3; O2SAT 96; BMI 26.9
== END 2025-03-05 11:51 | disposition home or self-care (01) ==
LOC: HO.HMCFM 10:53
PROVIDERS: PCP Nurse Practitioner Family; Visit Provider Nurse Practitioner Family
DX: R09.89 Other specified symptoms and signs involving the circulatory and respiratory systems (principal); I10 Essential (primary) hypertension

== ENCOUNTER 2025-03-05 10:53 | Outpatient (REF) | payer MEDICARE, SELFPAY ==
--- NOTE | ~2025-03-05 | XR_ITS ---
EXAMINATION: XR CHEST CLINICAL INFORMATION: R09.89 - Other specified symptoms and signs involving the circulatory an... COMPARISON: None available. TECHNIQUE: PA and lateral views FINDINGS: Hyperinflated lungs. No consolidation, pleural effusion or pneumothorax. Cardiomediastinal silhouette size is normal. Mild multilevel spondylosis, axial skeleton. Osteopenia versus osteoporosis. XR/XR chest 2V IMPRESSION: Hyperinflated lungs without acute airspace disease. Electronically signed by: Young Barreto MD 03/05/2025 03:54 PM EDT
[2025-03-05 15:17] LABS: Resp Syncy Virus RNA Qual PCR NEGATIVE (Negative); SARS COV2 PCR INHOUSE NEGATIVE (Negative)
== END 2025-03-05 10:54 | disposition home or self-care (01) ==
LOC: HO.XRAY 10:53
PROVIDERS: PCP Nurse Practitioner Family; Visit Provider Nurse Practitioner Family
DX: R09.89 Other specified symptoms and signs involving the circulatory and respiratory systems (principal); I10 Essential (primary) hypertension; Z79.2 Long term (current) use of antibiotics; Z79.899 Other long term (current) drug therapy
CPT/HCPCS: 71046; 87637; 99212

== ENCOUNTER → 2025-03-05 15:46 | Outpatient (BNV) | payer MEDICARE, SELFPAY | PROVIDERS: PCP Nurse Practitioner Family; Visit Provider Radiology Diagnostic Radiology | DX: J98.4 Other disorders of lung (principal) | CPT/HCPCS: 71046 ==

== ENCOUNTER 2025-03-16 08:37 | Outpatient (AMB) | payer MEDICARE, SELFPAY ==
--- NOTE | 2025-03-16 08:46 | MHC.OFFVIS ---
Vital Signs 03/16/25 08:56 Height 5 ft 4 in Weight 149 lb 14.629 oz BMI 25.7 BP 152/80 H Blood Pressure Location Lt brachial Position Sitting Pulse 96 Pulse Source Pulse Oximeter Pulse Oximetry (%) 97 Oxygen Delivery Method Room Air Intake Visit Reasons: osteoporosis Intake Note: Patient presents for Osteoporosis follow up. Allergies adalimumab (Humira) Allergy (Severe, Verified 03/16/25 08:55) rash Medication List - Last Reconciled 03/16/25 by Zahra Rodriguez MD cetirizine 10 mg PO DAILY 30 days fluticasone propionate 50 mcg/actuation (Flonase Allergy Relief) 2 sprays intranasal DAILY leflunomide 20 mg (2 x 10 mg) PO DAILY 90 days multivitamin 1 tab PO DAILY valsartan 160 mg PO DAILY 30 days valsartan 40 mg PO DAILY 30 days HPI Comments Details: Patient is a 69-year-old female with allergies, hypertension, polyarticular osteoarthritis, osteoporosis and seropositive rheumatoid arthritis here today for follow up Interval History: Patient last seen 04/07/[address] Clemens - On Leflunomide 20mg daily - She states that she feels great overall. - No joint swelling or stiffness. - She states that she is quite active. - She does multiple activities including golfing. - She denies any unintentional weight loss. - Denies any cough or shortness of breath. Today - On leflunomide 20mg daily - Continues to do well with her joints - No significant complaints - No falls or fractures Rheumatologic History: +RF++CCP onset 2005 Prednisone: reported- dates unknown Methotrexate: March 2016- January 2017-developed nodules Leflunomide: February 2018- present Xeljanz: September 2019 denied by insurance Humira: November 2019-stopped due to diffuse rash after starting Current Rheumatology Medication(s): Leflunomide 20mg daily [facility] Medical History Anxiety Surgical History History of cholecystectomy H/O left wrist surgery Family History Mother Heart attack High blood pressure Maternal Grandfather Heart attack Brother Alcohol abuse Social History (Reviewed 03/16/25 @ 08:56 by Alejandra Allan [facility]) Household Members: None Housing: Apartment Alcohol intake: former Patient Tobacco Use Status: Former Tobacco user e-Cigarette/Vaping Use: Never Used Second Hand Smoke Exposure: No service: No Current occupational status: retired Current occupational exposures/hazards: No Cognitive needs: No Hearing needs: No Vision needs: Yes Review of Systems Narrative Review of Systems Constitutional: Denies fever, chills, weight loss ENT: Denies vision changes, eye pain or eye redness, dental caries, dry mouth GI: Denies nausea, vomiting, diarrhea, abdominal pain, change in BM Pulm: Denies SOB, FARIAS, hemoptysis, wheezing Cards: Denies chest pain, palpitations Skin: Denies Raynaud's, rash, nail changes, photosensitivity, WEBFED 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 Well appearing and in no apparent painful distress MSK Hands Right Hand: Able to make a fist. No swelling or tenderness to palpation of the MCPs, PIPs or DIPs. Left Hand: Able to make a fist. No swelling or tenderness to palpation of the MCPs, PIPs or DIPs. Herbedens nodes noted bilaterally Wrists Right Wrist: Full ROM to flexion and extension. No swelling or TTP Left Wrist: Full ROM to flexion and extension. No swelling or TTP Elbows Right Elbow: Full ROM. No swelling or TTP. No TTP of the medial epicondyle. No TTP of the lateral epicondyle Left Elbow: Full ROM. No swelling or TTP. No TTP of the medial epicondyle. No TTP of the lateral epicondyle Shoulders Right shoulder: Good ROM. No swelling noted. No TTP of the AC joint. No TTP of the subacromial bursa. No TTP of the posterior shoulder Left shoulder: Good ROM. No swelling noted. No TTP of the AC joint. No TTP of the subacromial bursa. No TTP of the posterior shoulder Knees Right knee: Full ROM. No swelling noted. No TTP of the knee joint line. No TTP of pes anserine bursa Left knee: Full ROM. No swelling noted. No TTP of the knee joint line. No TTP of pes anserine bursa. Crepitations felt bilaterally Ankles Right ankle: Good ankle dorsiflexion and plantar flexion. No swelling. No TTP of the ankle joint Left ankle: Good ankle dorsiflexion and plantar flexion. No swelling. No TTP of the ankle joint Feet Right foot: Negative squeeze test Left foot: Negative squeeze test Tender points? No tenderness to palpation of the bilateral trapezius, supraspinatus, anterior costochondral junctions, bilateral suboccipital muscle insertions SKIN No rashes Vital Signs: BMI result Body Mass Index 25.7 Results Reviewed Results Reviewed: Laboratory Tests 01/21/25 09:35 WBC 6.5 RBC 3.91 L Hgb 12.8 Hct 38.2 Plt Count 388 ESR 13 Sodium 144 Potassium 4.3 Chloride 110 H Carbon Dioxide 26 BUN 11 Creatinine 0.70 AST 23 ALT 17 C-Reactive Protein 0.26 DEXA 03/2024 FINDINGS: LEFT FEMUR, NECK: BMD 0.815 g/cm2, Z-score -0.1, T-score -1.6, osteopenia. LEFT FEMUR, TOTAL: BMD 0.776 g/cm2, Z-score -0.5, T-score -1.8, osteopenia. AP SPINE L1-L4: BMD 0.749 g/cm2, Z-score -2.1, T-score -3.6, osteoporosis. Assessment & Plan Assessment & Plan (1) Seropositive rheumatoid arthritis: Comment: +RF++CCP onset 2005 Prednisone: reported- dates unknown Methotrexate: March 2016- January 2017-developed nodules Leflunomide: February 2018- present Xeljanz: September 2019 denied by insurance Humira: November 2019-stopped due to diffuse rash after starting MRI hand (11/21): high grade tear of carpi ulnaris, severe tenosynovitis. Erosions and carpal bones. Code(s): M05.9 - Rheumatoid arthritis with rheumatoid factor, unspecified Category: Medical Plan: #Seropositive Erosive RA Patient is a 69-year-old female with seropositive erosive rheumatoid arthritis here today for follow up. Currently in remission with no tender or swollen joints on examination Hand with osteoarthritic changes including [place]ber[place] nodes. Labs okay to continue leflunomide Plan - Leflunomide 20mg daily - RTC 6 months - Labs before visit: CBC, CMP, ESR, CRP, Vitamin D (2) Osteoporosis: Comment: DEXA 03/2024: AP Spine -3.6, Left femur neck -1.6, Left femur total -1.8 Code(s): M81.0 - Age-related osteoporosis without current pathological fracture Category: Medical Qualifiers: Osteoporosis type: unspecified Presence of current pathological fracture: without current pathological fracture Qualified Code(s): M81.0 - Age-related osteoporosis without current pathological fracture Plan: #Osteoporosis Patient with osteoporosis of the spine Not currently on any treatment Discussed starting alendronate and patient is agreeable Recommended vitamin-D supplementation and to be consistent with calcium intake by her foods Plan - Alendronate 70mg weekly - Vit D supplementation (3) Encounter for monitoring alendronate therapy: Code(s): Z51.81 - Encounter for therapeutic drug level monitoring; Z79.83 - intermediate (current) use of bisphosphonates Plan: #Long-term Use of Bisphosphonates Risks and benefits of bisphosphonates in the management of osteoporosis Benefits include improved bone density, decreased fracture risk Risks include atypical femoral fractures, GI upset, esophageal strictures Contraindicated in patients with a creatinine clearance < 30 to 35 ml/min Keep vitamin-D at least 35 ng/mL (4) Encounter for monitoring leflunomide therapy: Code(s): Z51.81 - Encounter for therapeutic drug level monitoring; Z79.899 - Other nursing home (current) drug therapy Plan: #Long-term leflunomide Discussed with patient the benefits and risks of leflunomide for managing the rheumatic condition Benefits include: - Reduced pain, maintenance of remission and reduction of flares Risks include: - GI upset especially diarrhea, skin rash, cytopenias, hepatotoxicity, weight loss, neuropathy Leflunomide is highly teratogenic. Has a very long half-life. Needs cholestyramine washout if there is desire for Initiation: CBC, BMP, LFTs, hepatitis-B and C serologies every 2-4 weeks for 3 months Monitoring: CBC, BMP, LFTs, hepatitis B and C serologies Plan Today is my first visit with this patient. I spent 45 minutes reviewing the record and labs, taking a history, examining the patient, discussing the treatment plan, answering questions, ordering diagnostic work up and documenting in the medical record Orders: Orders C Reactive Protein 6 Months Z79.899 - Other nursing home (current) drug therapy Erythrocyte Sedimentation Rate 6 Months Z79. - Other terminal operations manager (current) drug therapy Vitamin D 25-OH Total 6 Months E55.9 - Vitamin D deficiency, unspecified Complete Blood Count Auto Diff 6 Months Z79. - Other nursing home (current) drug therapy Comprehensive Met. Panel 6 Months Z. - Other terminal operations manager (current) drug therapy Medications: New alendronate 70 mg PO QWEEK 13 tabs 1RF 90 days M81.0 - Age-related osteoporosis without current pathological fracture Changed From leflunomide renewed to next appointment 20 mg (2 x 10 mg) PO DAILY 90 days 180 tabs 0RF M05.9 - Rheumatoid arthritis with rheumatoid factor, unspecified To leflunomide 20 mg (2 x 10 mg) PO DAILY 180 tabs 1RF 90 days M05.9 - Rheumatoid arthritis with rheumatoid factor, unspecified Coding Level of Care Code Est Pt Level 5 (41677) Complex EM visit Add On G2211 Diagnoses Seropositive rheumatoid arthritis M05.9 Osteoporosis without current pathological fracture, unspecified osteoporosis type M81.0 Osteoporosis type: unspecified Presence of current pathological fracture: without current pathological fracture Encounter for monitoring alendronate therapy Z51.81; Z79.83 Encounter for monitoring leflunomide therapy Z51.81; Z79.899
[2025-03-16 08:56] VITALS: BP 152/80; PULSE 96; O2SAT 97; BMI 25.7
== END 2025-03-16 09:31 | disposition home or self-care (01) ==
LOC: HO.RHES 08:38
PROVIDERS: PCP Nurse Practitioner Family; Visit Provider Student in an Organized Health Care Education/Training Program
DX: M05.79 Rheumatoid arthritis with rheumatoid factor of multiple sites without organ or systems involvement (principal); M81.0 Age-related osteoporosis without current pathological fracture; Z51.81 Encounter for therapeutic drug level monitoring; Z79.83 Long term (current) use of bisphosphonates; Z79.899 Other long term (current) drug therapy
CPT/HCPCS: 99215; G2211

== ENCOUNTER → 2025-03-16 08:37 | Outpatient (BNVA) | payer MEDICARE, SELFPAY | PROVIDERS: PCP Nurse Practitioner Family; Visit Provider Student in an Organized Health Care Education/Training Program | DX: M05.79 Rheumatoid arthritis with rheumatoid factor of multiple sites without organ or systems involvement (principal); M05.842 Other rheumatoid arthritis with rheumatoid factor of left hand; M05.841 Other rheumatoid arthritis with rheumatoid factor of right hand; M81.0 Age-related osteoporosis without current pathological fracture; Z51.81 Encounter for therapeutic drug level monitoring; Z79.83 Long term (current) use of bisphosphonates; Z87.891 Personal history of nicotine dependence | CPT/HCPCS: 99212 ==